=== PATIENT | female | born 1995 | race Caucasian/White ===

== ENCOUNTER 2020-08-19 19:30 | Emergency (ER) | payer OTHER ==
[2020-08-19 20:09] LABS: BILIRUBIN,URINE NEGATIVE (NEGATIVE); GLUCOSE, URINE (UA) NEGATIVE (NEGATIVE); KETONES,URINE (UA) NEGATIVE (NEGATIVE); LEUKOCYTE ESTERASE, URINE TRACE (NEGATIVE); NITRITE,URINE NEGATIVE (NEGATIVE); OCCULT BLOOD,URINE MODERATE (NEGATIVE); PH,URINE 5.5 PH (5.0-7.5); PROTEIN,URINE NEGATIVE (NEGATIVE); UROBILINOGEN,URINE 0.2 (NORMAL) E.U./dL (NORMAL)
[2020-08-19 20:14] LABS: CLARITY,URINE HAZY (CLEAR)
[2020-08-19 20:15] LABS: HCG UR QUAL NEGATIVE
[2020-08-19 20:35] LABS: BACTERIA,URINE Few /HPF (None Seen); SQUAMOUS EPITHELIAL CELL,UR FEW Squamous (<= Few)
--- NOTE | 2020-08-19 21:08 | ED Physician Documentation ---
PD HPI ABD PAIN - Stated complaint Stated Complaint: ABD PX - Chief complaint Chief Complaint: Abd Pain - History obtained from History obtained from: Patient - Additional information Additional information: Patient comes emergency department chief complaint of generalized and periumbilical abdominal pain that started today around midday. Patient denies nausea or vomiting. She has had a couple episodes of loose stools. She has had some dysuria she states which feels like previous UTIs. No fever or chills. No back pain. Patient does have a history of scoliosis with surgical repair with brenton placement, so has some chronic back issues. No new back pain, however. No chest symptoms. No other complaints at this time. States she does not think she could be . She is otherwise healthy. Review of Systems Ten Systems: 10 systems reviewed and negative Constitutional: reports: Reviewed and negative Eyes: reports: Reviewed and negative Ears: reports: Reviewed and negative Nose: reports: Reviewed and negative Throat: reports: Reviewed and negative Cardiac: reports: Reviewed and negative Respiratory: reports: Reviewed and negative GI: reports: Abdominal Pain : reports: Dysuria Skin: reports: Reviewed and negative Musculoskeletal: reports: Reviewed and negative Neurologic: reports: Reviewed and negative Psychiatric: reports: Reviewed and negative Endocrine: reports: Reviewed and negative Immunocompromised: reports: Reviewed and negative PD PAST MEDICAL HISTORY - Past Medical History Past Medical History: No - Past Surgical History Past Surgical History: Yes - Present Medications Home Medications: Ambulatory Orders Medication Instructions Recorded Confirmed Nitrofurantoin Monohyd/M-Cryst 100 mg PO BID #14 cap 08/19/20 [Macrobid 100 mg Capsule] - Allergies Allergies/Adverse Reactions: Allergies Allergy/AdvReac Type Severity Reaction Status Date / Time No Known Drug Allergies Allergy Verified 08/19/20 19:48 - Social History Does the pt smoke?: No Smoking Status: Never smoker Does the pt drink ETOH?: No Does the pt have substance abuse?: No - Immunizations Immunizations are current?: No PD ED PE NORMAL - Vitals Vital signs reviewed: Yes - General General: Alert and oriented X 3, No acute distress - HEENT HEENT: Atraumatic, PERRL, EOMI, Moist mucous membranes - Neck Neck: Supple, no meningeal sign - Cardiac Cardiac: RRR, No murmur - Respiratory Respiratory: No respiratory distress, Clear bilaterally - Abdomen Abdomen: Soft, Non distended, Other (Diffuse mild tenderness, worse over the suprapubic area.) - Derm Derm: Warm and dry - Extremities Extremities: No deformity - Neuro Neuro: Alert and oriented X 3 - Psych Psych: Normal mood, Normal affect Results - Vitals Vitals: Vital Signs - 24 hr 08/19/20 08/19/20 08/19/20 19:45 20:02 21:35 Temperature 37.3 C 37.2 C Heart Rate 88 69 62 Respiratory 16 16 16 Rate Blood Pressure 133/85 H 123/77 103/62 O2 Saturation 99 100 100 08/19/20 22:17 Temperature 37.1 C Heart Rate 56 L Respiratory 12 Rate Blood Pressure 110/71 O2 Saturation 99 Oxygen O2 Source Room air - Labs Labs: Laboratory Tests 08/19/20 08/19/20 08/19/20 19:50 19:50 20:59 WBC 6.8 RBC 4.47 Hgb 13.2 Hct 40.4 MCV 90.4 MCH 29.5 MCHC 32.7 RDW 12.9 Plt Count 348 MPV 9.0 Neut # (Auto) 3.4 Lymph # (Auto) 2.5 [place] # (Auto) 0.5 Eos # (Auto) 0.3 Baso # (Auto) 0.0 Absolute Nucleated RBC 0.00 Nucleated RBC % 0.0 Sodium Potassium Chloride Carbon Dioxide Anion Gap BUN Creatinine Estimated GFR (MDRD) Glucose Calcium Total Bilirubin AST ALT Alkaline Phosphatase Total Protein Albumin Globulin Albumin/Globulin Ratio Lipase Urine Color LT. YELLOW Urine Clarity HAZY Urine pH 5.5 Ur Specific [place] <=1.005 Urine Protein NEGATIVE Urine Glucose (UA) NEGATIVE Urine Ketones NEGATIVE Urine Occult Blood MODERATE H Urine Nitrite NEGATIVE Urine Bilirubin NEGATIVE Urine Urobilinogen 0.2 (NORMAL) Ur Leukocyte Esterase TRACE H Urine RBC 6-10 H Urine WBC 4-5 Ur Squamous Epith Cells FEW Squamous Urine Bacteria Few Ur Microscopic Review INDICATED Urine Culture Comments INDICATED Urine HCG, Qual NEGATIVE 08/19/20 20:59 WBC RBC Hgb Hct MCV MCH MCHC RDW Plt Count MPV Neut # (Auto) Lymph # (Auto) [place] # (Auto) Eos # (Auto) Baso # (Auto) Absolute Nucleated RBC Nucleated RBC % Sodium 139 Potassium 4.3 Chloride 108 Carbon Dioxide 22 Anion Gap 9.0 BUN 10 Creatinine 0.5 Estimated GFR (MDRD) 149 Glucose 94 Calcium 9.8 Total Bilirubin 0.4 AST 17 ALT 14 Alkaline Phosphatase 53 Total Protein 7.9 Albumin 4.5 Globulin 3.4 Albumin/Globulin Ratio 1.3 Lipase 35 Urine Color Urine Clarity Urine pH Ur Specific [place] Urine Protein Urine Glucose (UA) Urine Ketones Urine Occult Blood Urine Nitrite Urine Bilirubin Urine Urobilinogen Ur Leukocyte Esterase Urine RBC Urine WBC Ur Squamous Epith Cells Urine Bacteria Ur Microscopic Review Urine Culture Comments Urine HCG, Qual PD MEDICAL DECISION MAKING - ED course Complexity details: reviewed results, re-evaluated patient, considered differential, d/w patient ED course: Patient was not nauseated and had fairly mild, generalized abdominal pain worse over the suprapubic area. No evidence of an acute abdomen. Patient had difficult peripheral access, and so blood draw was performed without IV initially. Patient was also worked up with urinalysis. Laboratory studies were unremarkable. The urinalysis was mildly positive, and given the dysuria that the patient has had, as well as her history of UTIs and this feeling similar, I did opt to begin treatment for UTI. The patient did not have any abdominal findings which indicated the need for CT scan or ultrasound at this time. We have discussed that if the patient is not feeling better in the next week, she should follow-up with her primary care physician. We have discussed the usual indications for return Departure - Departure Disposition: 01 Home, Self Care Clinical Impression: Urinary tract infection Qualifiers: Urinary tract infection type: acute cystitis Hematuria presence: with hematuria Qualified Code(s): N30.01 - Acute cystitis with hematuria Condition: Stable Instructions: ED UTI Cystitis Female Prescriptions: Nitrofurantoin Monohyd/M-Cryst [Macrobid 100 mg Capsule] 100 mg PO BID #14 cap Comments: Your labs look good. There is no evidence of a serious cause of your symptoms. Your urine is mildly positive for infection, which may indicate an early urinary tract infection, particularly since your symptoms are similar to when you had urinary tract infections in the past. As such, you have been started on antibiotics today. It is also possible that you have one of the many viruses that go around causing similar symptoms. Please take the antibiotic course, as directed. If you are not feeling better when antibiotics are done, please make an appointment to follow-up with your primary care physician for reevaluation. Discharge Date/Time: 08/19/20 22:27
[2020-08-19 21:16] LABS: BASOPHILS % (AUTO) 0.6 %; EOSINOPHILS # (AUTO) 0.3 10^3/uL (0.0-0.7); EOSINOPHILS % (AUTO) 4.9 %; HCT - HEMATOCRIT 40.4 % (37.0-47.0); HGB - HEMOGLOBIN 13.2 g/dL (12.0-16.0); LYMPHOCYTES # (AUTO) 2.5 10^3/uL (1.5-3.5); LYMPHOCYTES % (AUTO) 36.8 %; MEAN CORPUSCULAR HEMOGLOBIN 29.5 pg (27.0-31.0); MEAN CORPUSCULAR HGB CONC 32.7 g/dL (32.0-36.0); MEAN CORPUSCULAR VOLUME 90.4 fL (81.0-99.0); MONOCYTES # (AUTO) 0.5 10^3/uL (0.0-1.0); NEUTROPHILS # (AUTO) 3.4 10^3/uL (1.5-6.6); NEUTROPHILS % (AUTO) 49.3 %; PLT - PLATELET COUNT 348 10^3/uL (130-450); RED BLOOD COUNT 4.47 10^6/uL (4.20-5.40); RED CELL DISTRIBUTION WIDTH 12.9 % (12.0-15.0); WHITE BLOOD COUNT 6.8 x10^3/uL (4.8-10.8)
[2020-08-19 21:30] LABS: ALBUMIN 4.5 g/dL (3.2-5.5); ALBUMIN/GLOBULIN RATIO 1.3 (1.0-2.2); BILIRUBIN,TOTAL 0.4 mg/dL (0.2-1.0); CALCIUM 9.8 mg/dL (8.5-10.3); CREATININE 0.5 mg/dL (0.4-1.0); POTASSIUM 4.3 mmol/L (3.5-5.0); TOTAL PROTEIN 7.9 g/dL (6.7-8.2)
[2020-08-19] MEDS ORDERED: NITROFURANTOIN MACRO 100 MG CAPSULE PO STA (21:42)
[2020-08-19 22:18] VITALS: BP 110/71
== END 2020-08-19 22:27 | disposition home or self-care (01) ==
LOC: ED 19:30
DX: N30.01 Acute cystitis with hematuria (principal)
CPT/HCPCS: 36415; 80053; 81001; 81025; 83690; 85025; 87086; 99283; 99284; A9270; 81003

== ENCOUNTER 2020-11-29 18:31 | Emergency (ER) | payer OTHER ==
[2020-11-29 18:36] VITALS: BP 128/83
[2020-11-29 18:53] LABS: BILIRUBIN,URINE NEGATIVE (NEGATIVE); GLUCOSE, URINE (UA) NEGATIVE (NEGATIVE); KETONES,URINE (UA) NEGATIVE (NEGATIVE); LEUKOCYTE ESTERASE, URINE SMALL (NEGATIVE); NITRITE,URINE NEGATIVE (NEGATIVE); OCCULT BLOOD,URINE TRACE-LYSE (NEGATIVE); PH,URINE 7.5 PH (5.0-7.5); PROTEIN,URINE NEGATIVE (NEGATIVE); UROBILINOGEN,URINE 0.2 (NORMAL) E.U./dL (NORMAL)
[2020-11-29 18:55] LABS: CLARITY,URINE CLEAR (CLEAR); HCG UR QUAL NEGATIVE
[2020-11-29] MEDS ORDERED: NITROFURANTOIN MACRO 100 MG CAPSULE PO STA (18:59)
[2020-11-29] MEDS ORDERED: PHENAZOPYRIDINE 100 MG TABLET PO STA (18:59)
--- NOTE | 2020-11-29 19:00 | ED Physician Documentation ---
PD HPI FEMALE - Stated complaint Stated Complaint: FEMALE - Chief complaint Chief Complaint: UTI - History obtained from History obtained from: Patient, Family - Additional information Additional information: Since yesterday she has had suprapubic pressure and burning dysuria. No flank pain or fevers. She gets relatively frequent UTIs, this will be her fourth in about the last 18 months. Review of Systems Constitutional: denies: Fever, Chills Cardiac: reports: Reviewed and negative Respiratory: reports: Reviewed and negative PD PAST MEDICAL HISTORY - Past Medical History Past Medical History: No - Past Surgical History Past Surgical History: Yes - Present Medications Home Medications: Ambulatory Orders Medication Instructions Recorded Confirmed Nitrofurantoin [Macrobid] 1 cap PO BID #10 cap 11/29/20 Phenazopyridine HCl [Pyridium] 200 mg PO TID PRN #6 tablet 11/29/20 - Allergies Allergies/Adverse Reactions: Allergies Allergy/AdvReac Type Severity Reaction Status Date / Time No Known Drug Allergies Allergy Verified 11/29/20 18:34 - Social History Does the pt smoke?: No Smoking Status: Never smoker Does the pt drink ETOH?: No Does the pt have substance abuse?: No - Immunizations Immunizations are current?: No PD ED PE NORMAL - Vitals Vital signs reviewed: Yes - General General: Alert and oriented X 3, No acute distress - Abdomen Abdomen: Non tender - Back Back: No CVA TTP, No spinal TTP - Derm Derm: Normal color, Warm and dry - Neuro Neuro: Alert and oriented X 3, Normal speech Results - Vitals Vitals: Vital Signs - 24 hr 11/29/20 18:34 Temperature 36.5 C Heart Rate 70 Respiratory 16 Rate Blood Pressure 128/83 H O2 Saturation 100 Oxygen O2 Source Room air - Labs Labs: Laboratory Tests 11/29/20 18:44 Urine Color YELLOW Urine Clarity CLEAR Urine pH 7.5 Ur Specific [place] 1.010 Urine Protein NEGATIVE Urine Glucose (UA) NEGATIVE Urine Ketones NEGATIVE Urine Occult Blood TRACE-LYSE Urine Nitrite NEGATIVE Urine Bilirubin NEGATIVE Urine Urobilinogen 0.2 (NORMAL) Ur Leukocyte Esterase SMALL H Ur Microscopic Review INDICATED Urine Culture Comments Not Reportable Urine HCG, Qual NEGATIVE Departure - Departure Disposition: 01 Home, Self Care Clinical Impression: Cystitis Condition: Good Record reviewed to determine appropriate education?: Yes Instructions: ED UTI Cystitis Female Follow-Up: Verenice Caldera MD [Physician No Access] - Prescriptions: Nitrofurantoin [Macrobid] 1 cap PO BID #10 cap Phenazopyridine HCl [Pyridium] 200 mg PO TID PRN #6 tablet PRN Reason: dysuria Comments: We will culture your urine, the results should be done in 48-72 hours. If an antibiotic change is necessary we will call you. Return if worse in the meantime, especially if you develop increasing flank pain, fevers, or cannot keep down the medication.
[2020-11-29 19:06] LABS: BACTERIA,URINE Few /HPF (None Seen); RBC,URINE 0-5 /HPF (0-5); SQUAMOUS EPITHELIAL CELL,UR FEW Squamous (<= Few)
== END 2020-11-29 19:20 | disposition home or self-care (01) ==
LOC: ED 18:31
DX: N30.90 Cystitis, unspecified without hematuria (principal)
CPT/HCPCS: 81001; 81025; 87086; 99283; A9270; 81003

== ENCOUNTER 2021-02-08 21:34 | Emergency (ER) | payer OTHER ==
--- NOTE | 2021-02-08 22:04 | ED Physician Documentation ---
History of Present Illness - Stated complaint Stated Complaint: CP,DIFFICULTY BREATHING - Chief complaint Chief Complaint: Resp - History obtained from History obtained from: Patient - Additonal information Additional information: 25yF with pmh asthma p/w cp and shortness of breath in the midchest, squeezing quality a/w nonprod cough X 2 days. patient took albuterol inhaler X 2 about 40 min [employer] with some relief. also endorses headache with cough. Review of Systems Ten Systems: 10 systems reviewed and negative Constitutional: denies: Fever Cardiac: reports: Chest pain / pressure Respiratory: reports: Dyspnea, Cough Neurologic: reports: Headache PD PAST MEDICAL HISTORY - Past Medical History Past Medical History: Yes Respiratory: Asthma Musculoskeletal: Scoliosis - Past Surgical History Past Surgical History: Yes Ortho: Spine surgery - Present Medications Home Medications: Ambulatory Orders Medication Instructions Recorded Confirmed Albuterol Sulfate [Proair Hfa 2 puffs IH Q4HR PRN 02/08/21 02/08/21 Inhaler] - Allergies Allergies/Adverse Reactions: Allergies Allergy/AdvReac Type Severity Reaction Status Date / Time No Known Drug Allergies Allergy Verified 02/08/21 21:45 - Social History Does the pt smoke?: No Smoking Status: Never smoker Does the pt drink ETOH?: No Does the pt have substance abuse?: No - Immunizations Immunizations are current?: No - POLST Patient has POLST: No PD ED PE NORMAL - Vitals Vital signs reviewed: Yes - General General: Alert and oriented X 3, No acute distress, Well developed/nourished - HEENT HEENT: Atraumatic, PERRL, EOMI - Neck Neck: Supple, no meningeal sign - Cardiac Cardiac: RRR - Respiratory Respiratory: No respiratory distress, Clear bilaterally - Abdomen Abdomen: Non tender, Non distended - Derm Derm: Normal color, Warm and dry - Extremities Extremities: No deformity - Neuro Neuro: Alert and oriented X 3 - Psych Psych: Normal mood, Normal affect Results - Vitals Vitals: Vital Signs - 24 hr 02/08/21 02/08/21 02/08/21 21:35 22:05 22:32 Temperature 36.7 C 36.7 C Heart Rate 83 72 78 Respiratory 18 16 14 Rate Blood Pressure 124/75 122/71 122/71 O2 Saturation 99 98 98 Oxygen O2 Source Room air - EKG (time done) 2151 Rate: Rate (enter#) (81) Rhythm: NSR [place]: Normal Intervals: Normal [place] QRS: Normal Ischemia: Normal ST segments PD MEDICAL DECISION MAKING - ED course ED course: patient presented with cough and shortness of breath, improved upon arrival to ed. patient is unvaccinated against covid-19 and concerned, requesting covid test. return precautions given. patient will self-isolate until results come back. Departure - Departure Disposition: Home, Self Care Clinical Impression: Viral upper respiratory illness Condition: Good Instructions: ED Viral Syndrome Comments: You were seen in the emergency department for a viral upper respiratory infection. Your vital signs and exam were normal. Your covid test result will come back in 2-3 days. You should isolate at home until then. Please return to the emergency department if you have any new or worsening symptoms or other concerns. The covid-19 has been proven to be safe and effective. Over 98% of doctors have gotten the covid-19 vaccine as well as all of the living [place] presidents. The Pfizer vaccine is fully approved by the FDA and the CDC highly recommends getting vaccinated as soon as possible. There is a lot of misinformation on the internet and it's important to look to established medical authorities like the CDC and FDA for true information. I highly encourage you to talk to your doctor about vaccination. Forms: Activity restrictions Discharge Date/Time: 02/08/21 22:33
[2021-02-08 22:06] VITALS: BP 122/71
== END 2021-02-08 22:33 | disposition home or self-care (01) ==
LOC: ED 21:34
DX: U07.1 COVID-19 (principal); J06.9 Acute upper respiratory infection, unspecified; J45.909 Unspecified asthma, uncomplicated
CPT/HCPCS: 93005; 99284

== ENCOUNTER 2021-02-11 19:02 | Emergency (ER) | payer OTHER ==
[2021-02-11] MEDS ORDERED: guaiFENesin/CODEINE 5 ML UDC PO STA (19:25)
[2021-02-11] MEDS ORDERED: IBUPROFEN 400 MG TABLET PO STA (19:25)
--- NOTE | 2021-02-11 19:27 | ED Physician Documentation ---
PD HPI DYSPNEA - Stated complaint Stated Complaint: C+,CHEST PX,SOA - History obtained from History obtained from: Patient - Additional information Additional information: 25-year-old woman unvaccinated against Covid was seen here 3 days ago and diagnosed with Covid. She is been symptomatic for 5 days now. Major symptoms are central sharp chest pain, trouble breathing and cough. No pedal edema or calf pain. No possibility of . Review of Systems Ten Systems: 10 systems reviewed and negative Constitutional: reports: Fever, Chills, Myalgias, Fatigue Nose: denies: Rhinorrhea / runny nose Respiratory: reports: Dyspnea, Cough GI: denies: Abdominal Pain PD PAST MEDICAL HISTORY - Past Medical History Respiratory: Asthma Musculoskeletal: Scoliosis - Past Surgical History Past Surgical History: Yes Ortho: Spine surgery - Present Medications Home Medications: Ambulatory Orders Medication Instructions Recorded Confirmed Albuterol Sulf [Ventolin Hfa 1 - 2 puffs INH Q4HR PRN #1 inhaler 02/11/21 Inhaler] Ibuprofen [Motrin] 400 mg PO Q6H PRN #20 tablet 02/11/21 guaiFENesin/CODEINE [Robitussin AC] 5 - 10 ml PO Q6H PRN #120 ml 02/11/21 - Allergies Allergies/Adverse Reactions: Allergies Allergy/AdvReac Type Severity Reaction Status Date / Time No Known Drug Allergies Allergy Verified 02/11/21 19:26 - Social History Does the pt smoke?: No Smoking Status: Never smoker Does the pt drink ETOH?: No Does the pt have substance abuse?: No - Immunizations Immunizations are current?: No - POLST Patient has POLST: No PD ED PE NORMAL - Vitals Vital signs reviewed: Yes - General General: Alert and oriented X 3 (She appears well, no evidence of respiratory distress, comfortable) - Cardiac Cardiac: RRR, No murmur - Respiratory Respiratory: No respiratory distress, Clear bilaterally - Abdomen Abdomen: Soft, Non tender - Back Back: No CVA TTP, No spinal TTP - Derm Derm: Normal color, Warm and dry - Extremities Extremities: No edema, No calf tenderness / cord - Neuro Neuro: Alert and oriented X 3, Normal speech Results - Vitals Vitals: Vital Signs - 24 hr 02/11/21 19:20 Temperature 36.3 C L Heart Rate 77 Respiratory 16 Rate Blood Pressure 129/63 O2 Saturation 100 Oxygen O2 Source Room air PD MEDICAL DECISION MAKING - ED course ED course: 25-year-old woman with known Covid. No evidence of pneumonia at this juncture. Nothing in the history or physical to 6 suggest ACS or thromboembolic disease. We will treat symptomatically and discussed signs and symptoms that would necessitate return for hospitalization. She does not fit criteria for antibody therapy. Departure - Departure Disposition: 01 Home, Self Care Clinical Impression: COVID-19 Condition: Good Record reviewed to determine appropriate education?: Yes Instructions: ED Viral Syndrome Prescriptions: Albuterol Sulf [Ventolin Hfa Inhaler] 1 - 2 puffs INH Q4HR PRN #1 inhaler PRN Reason: Shortness Of Air/Wheezing Ibuprofen [Motrin] 400 mg PO Q6H PRN #20 tablet PRN Reason: Pain guaiFENesin/CODEINE [Robitussin AC] 5 - 10 ml PO Q6H PRN #120 ml PRN Reason: Cough Comments: As discussed, you are positive for Covid which you already knew. You need to quarantine for at least 9 more days. [facility] [place] Note that someone else will have to go pick them up for it for you since you are need to be under strict quarantine. However goes to the pharmacy should buy a pulse oximeter. You can use this and if it goes below 92% please return for reevaluation. Your oxygen levels today are 100%. You are also welcome to return for any other new or worrisome symptoms. Discharge Date/Time: 02/11/21 19:34
[2021-02-11 19:29] VITALS: BP 129/63
== END 2021-02-11 19:34 | disposition home or self-care (01) ==
LOC: ED 19:02
DX: U07.1 COVID-19 (principal)
CPT/HCPCS: 99283; 99284; A9270

== ENCOUNTER 2021-03-02 18:57 | Emergency (ER) | payer OTHER ==
[2021-03-02 19:47] LABS: BILIRUBIN,URINE NEGATIVE (NEGATIVE); GLUCOSE, URINE (UA) NEGATIVE (NEGATIVE); KETONES,URINE (UA) NEGATIVE (NEGATIVE); LEUKOCYTE ESTERASE, URINE SMALL (NEGATIVE); NITRITE,URINE NEGATIVE (NEGATIVE); OCCULT BLOOD,URINE MODERATE (NEGATIVE); PROTEIN,URINE NEGATIVE (NEGATIVE); UROBILINOGEN,URINE 0.2 (NORMAL) E.U./dL (NORMAL)
[2021-03-02 19:50] LABS: CLARITY,URINE CLEAR (CLEAR); HCG UR QUAL NEGATIVE
[2021-03-02 20:02] LABS: BACTERIA,URINE Many /HPF (None Seen); RBC,URINE 0-5 /HPF (0-5); SQUAMOUS EPITHELIAL CELL,UR MANY Squamous (<= Few)
--- NOTE | 2021-03-02 20:16 | ED Physician Documentation ---
History of Present Illness - Stated complaint Stated Complaint: FEMALE /BACK PX - Chief complaint Chief Complaint: UTI - Additonal information Additional information: 25-year-old female presents emergency department for evaluation of 2 days of dysuria and low back pain. She has a history of recurrent urinary tract infections. This is the sixth 1 over the last 2 years. No fevers or vomiting. Denies a possibility of . Denies vaginal bleeding Review of Systems Constitutional: reports: Reviewed and negative Eyes: reports: Reviewed and negative Nose: reports: Reviewed and negative Throat: reports: Reviewed and negative Cardiac: reports: Reviewed and negative GI: reports: Abdominal Pain. denies: Nausea, Vomiting : reports: Dysuria, Hematuria. denies: Frequency, Hesitancy Skin: reports: Reviewed and negative Musculoskeletal: reports: Reviewed and negative PD PAST MEDICAL HISTORY - Past Medical History Respiratory: Asthma Musculoskeletal: Scoliosis - Past Surgical History Past Surgical History: Yes Ortho: Spine surgery - Present Medications Home Medications: Ambulatory Orders Medication Instructions Recorded Confirmed Cefpodoxime Proxetil [Vantin] 100 mg PO Q12H #14 tablet 03/02/21 - Allergies Allergies/Adverse Reactions: Allergies Allergy/AdvReac Type Severity Reaction Status Date / Time No Known Drug Allergies Allergy Verified 03/02/21 19:02 - Social History Does the pt smoke?: No Smoking Status: Never smoker Does the pt drink ETOH?: No Does the pt have substance abuse?: No - Immunizations Immunizations are current?: No - POLST Patient has POLST: No PD ED PE NORMAL - General General: Alert and oriented X 3, No acute distress - HEENT HEENT: PERRL - Neck Neck: Supple, no meningeal sign - Cardiac Cardiac: RRR, No murmur - Respiratory Respiratory: Clear bilaterally - Abdomen Abdomen: Normal bowel sounds, Soft. No: Non tender (Mild suprapubic tenderness without guarding or rebound. No flank or CVA tenderness elicited) - Derm Derm: Normal color, Warm and dry, No rash - Extremities Extremities: No deformity - Neuro Neuro: Alert and oriented X 3 Results - Vitals Vitals: Vital Signs - 24 hr 03/02/21 18:59 Temperature 36.5 C Heart Rate 66 Respiratory 16 Rate Blood Pressure 131/73 H O2 Saturation 100 Oxygen O2 Source Room air - Labs Labs: Laboratory Tests 03/02/21 19:18 Urine Color YELLOW Urine Clarity CLEAR Urine pH 7.0 Ur Specific [place] 1.020 Urine Protein NEGATIVE Urine Glucose (UA) NEGATIVE Urine Ketones NEGATIVE Urine Occult Blood MODERATE H Urine Nitrite NEGATIVE Urine Bilirubin NEGATIVE Urine Urobilinogen 0.2 (NORMAL) Ur Leukocyte Esterase SMALL H Urine RBC 0-5 Urine WBC 6-10 H Ur Squamous Epith Cells MANY Squamous H Urine Bacteria Many H Ur Microscopic Review INDICATED Urine Culture Comments NOT INDICATED Urine HCG, Qual NEGATIVE PD MEDICAL DECISION MAKING - ED course Complexity details: reviewed results ED course: 25-year-old female presents emergency department for urinary symptoms began 2 days ago. She does have a UA consistent with infection. No fevers flank pain or CVA tenderness doubt a sending infection or pyelonephritis. Patient will be started on Vantin. Advise close follow-up with her PCP for evaluation of her recurrent urinary tract infections would likely benefit from a urology referral. Departure - Departure Disposition: 01 Home, Self Care Clinical Impression: Cystitis Condition: Stable Record reviewed to determine appropriate education?: Yes Instructions: ED UTI Cystitis Female Prescriptions: Cefpodoxime Proxetil [Vantin] 100 mg PO Q12H #14 tablet Comments: You were seen in the emergency department today for low back pain and some discomfort when you urinate. Your urine is consistent with an infection. Please fill the prescription for the Cefpodoxime at the [facility] in [place] tomorrow. Begin taking twice daily for the next week. It is important you follow-up with your primary care doctor to discuss your recurrent urinary tract infections. You may benefit from referral to a urologist. If at any point you find that your symptoms are not improving, you develop pain higher in your back, have fevers or uncontrolled vomiting then please return immediately to the ER for a second evaluation.
[2021-03-02 20:33] VITALS: BP 113/73
== END 2021-03-02 20:34 | disposition home or self-care (01) ==
LOC: ED 18:57
DX: N30.91 Cystitis, unspecified with hematuria (principal)
CPT/HCPCS: 81001; 81003; 81025; 87086; 99283

== ENCOUNTER 2021-03-16 08:00 | Outpatient (CLI) | payer OTHER | END 2021-03-16 23:59 | disposition home or self-care (01) | LOC: LAB 08:00 | PROVIDERS: ATTEND Nurse Practitioner | DX: N39.0 Urinary tract infection, site not specified (principal) | CPT/HCPCS: 87086 ==

== ENCOUNTER 2021-03-17 11:03 | Outpatient (CLI) | payer OTHER ==
[2021-03-17 13:40] LABS: BASOPHILS % (AUTO) 0.5 %; EOSINOPHILS # (AUTO) 0.4 10^3/uL (0.0-0.7); EOSINOPHILS % (AUTO) 6.9 %; HCT - HEMATOCRIT 41.3 % (37.0-47.0); HGB - HEMOGLOBIN 13.2 g/dL (12.0-16.0); MEAN CORPUSCULAR HEMOGLOBIN 29.7 pg (27.0-31.0); MEAN PLATELET VOLUME 9.7 fL (7.9-10.8); MONOCYTES # (AUTO) 0.5 10^3/uL (0.0-1.0); NEUTROPHILS # (AUTO) 2.9 10^3/uL (1.5-6.6); NEUTROPHILS % (AUTO) 50.3 %; PLT - PLATELET COUNT 317 10^3/uL (130-450); RED BLOOD COUNT 4.44 10^6/uL (4.20-5.40); WHITE BLOOD COUNT 5.8 x10^3/uL (4.8-10.8)
[2021-03-17 14:21] LABS: ALBUMIN 4.6 g/dL (3.2-5.5); ALBUMIN/GLOBULIN RATIO 1.3 (1.0-2.2); BILIRUBIN,TOTAL 0.9 mg/dL (0.2-1.0); CALCIUM 9.5 mg/dL (8.5-10.3); CREATININE 0.6 mg/dL (0.4-1.0); POTASSIUM 3.8 mmol/L (3.5-5.0); TOTAL PROTEIN 8.1 g/dL (6.7-8.2)
[2021-03-17 19:27] LABS: CHLAMYDIA TRACHOMATIS DNA NEGATIVE (NEGATIVE); NEISSERIA GONORRHOEAE DNA NEGATIVE (NEGATIVE); TRICHOMONAS VAGINALIS DNA NEGATIVE (NEGATIVE)
== END 2021-03-17 11:04 | disposition home or self-care (01) ==
LOC: LAB.N 11:03
PROVIDERS: ATTEND Nurse Practitioner
DX: N39.0 Urinary tract infection, site not specified (principal); R30.0 Dysuria
CPT/HCPCS: 36415; 80053; 82150; 83690; 85025; 87086; 87491; 87591; 87661

== ENCOUNTER 2021-04-07 15:55 | Emergency (ER) | payer OTHER ==
--- NOTE | 2021-04-07 16:22 | ED Physician Documentation ---
PD HPI FEMALE - Stated complaint Stated Complaint: FEMALE - Chief complaint Chief Complaint: UTI - History obtained from History obtained from: Patient - History of Present Illness Timing - duration: Months (6) Timing - details: Gradual onset Pain level max: 6 Pain level max: 4 Associated symptoms: Pelvic pain, Dysuria, Urinary frequency. No: Fever, Chest/shoulder pain, Vaginal pain, Vaginal bleeding, Vaginal discharge, Genital sore/lesion, Hematuria Contributing factors: No: - Additional information Additional information: Patient is a 25-year-old female who presents to the emergency department complaining of dysuria and pelvic pain for the past 6 months. She states she has been seen and treated multiple times for UTI. Denies vaginal bleeding or discharge. Symptoms do not improve with treatment for the UTI. No fevers. No chills. No back pain. She has had blood work multiple times as well that has been reportedly normal. She states that she has taken Pyridium without relief of symptoms. Denies any STD exposure that she is aware of. No vaginal bleeding or discharge. Review of Systems Ten Systems: 10 systems reviewed and negative Constitutional: denies: Fever, Chills Nose: denies: Rhinorrhea / runny nose, Congestion Respiratory: denies: Cough GI: denies: Nausea, Vomiting, Diarrhea, Hematemesis, Bloody / black stool Skin: denies: Rash Musculoskeletal: denies: Neck pain, Back pain Neurologic: denies: Headache PD PAST MEDICAL HISTORY - Past Medical History Respiratory: Asthma Musculoskeletal: Scoliosis - Past Surgical History Past Surgical History: Yes Ortho: Spine surgery - Present Medications Home Medications: Ambulatory Orders Medication Instructions Recorded Confirmed Cefpodoxime Proxetil [Vantin] 100 mg PO Q12H #14 tablet 03/02/21 - Allergies Allergies/Adverse Reactions: Allergies Allergy/AdvReac Type Severity Reaction Status Date / Time No Known Drug Allergies Allergy Verified 04/07/21 16:04 - Social History Does the pt smoke?: No Smoking Status: Never smoker Does the pt drink ETOH?: No Does the pt have substance abuse?: No - Immunizations Immunizations are current?: No - POLST Patient has POLST: No PD ED PE NORMAL - Vitals Vital signs reviewed: Yes - General General: Alert and oriented X 3, No acute distress, Well developed/nourished - HEENT HEENT: Moist mucous membranes, Pharynx benign - Neck Neck: Supple, no meningeal sign - Cardiac Cardiac: RRR, Strong equal pulses - Respiratory Respiratory: No respiratory distress, Clear bilaterally - Abdomen Abdomen: Soft, Non distended, Other (Tender to palpation across the lower abdomen. No peritoneal signs) - Female Female : Pt declined (Patient declines a pelvic exam at this time, she would like to self swab and see those results) - Back Back: No CVA TTP, No spinal TTP - Derm Derm: Warm and dry - Extremities Extremities: No edema - Neuro Neuro: Alert and oriented X 3 - Psych Psych: Normal mood, Normal affect Results - Vitals Vitals: Vital Signs - 24 hr 04/07/21 15:58 Temperature 36.5 C Heart Rate 82 Respiratory 15 Rate Blood Pressure 114/62 O2 Saturation 99 Oxygen O2 Source Room air PD MEDICAL DECISION MAKING - ED course Complexity details: reviewed old records, re-evaluated patient, considered differential, d/w patient ED course: 25-year-old female presents to the emergency department with ongoing pelvic pain for the past 6 months. I reviewed her chart and she has had multiple rounds of normal blood work. Her urinalysis has appeared positive but all cultures have been negative for infection. We will perform self swab for vaginal infections. Patient declines a pelvic exam at this time. We will perform a pelvic ultrasound as well. Patient will be signed out to Dr. Alonso, [facility] emergency department physician for final disposition.
[2021-04-07 16:57] LABS: AMORPHOUS SEDIMENT,UR Marked /LPF; BACTERIA,URINE Rare /HPF (None Seen); CLARITY,URINE INTERFERENCES (CLEAR); HCG UR QUAL NEGATIVE; RBC,URINE 0-5 /HPF (0-5); SQUAMOUS EPITHELIAL CELL,UR FEW Squamous (<= Few); WBC,URINE 0-3 /HPF (0-5)
--- NOTE | 2021-04-07 18:14 | ED Physician Documentation ---
ED Addendum - Addendum Addendum: 04/07/21 18:13 Patient signed out to me at shift change. Briefly this is a 25-year-old woman who has had a year and a half constant pelvic pain and further history shows that she has had dyspareunia and cystitis type symptoms previously diagnosed as cystitis but note made that her previous cultures were negative. Dr. Breen ordered a pelvic ultrasound tonight and the tower operator reported to me that this was a normal study. Based on her symptoms I believe she probably has in terstitial cystitis, and recommended that she follow-up with urogynecology. We will also trial some amitriptyline in the interim at a dose of 10 mg once daily at bedtime #30. Disposition: Discharged home Condition: Stable Diagnoses: 1. Pelvic pain 2. Dyspareunia
[2021-04-07 18:20] LABS: BACTERIAL VAGINOSIS DNA NEGATIVE (NEGATIVE); CANDIDA GLABRATA DNA NEGATIVE (NEGATIVE); CANDIDA GROUP DNA NEGATIVE (NEGATIVE); CANDIDA KRUSEI DNA NEGATIVE (NEGATIVE); TRICHOMONAS VAGINALIS DNA NEGATIVE (NEGATIVE)
[2021-04-07 18:25] VITALS: BP 118/80
--- NOTE | 2021-04-07 18:37 | Ultrasound Report ---
PROCEDURE: Pelvic w/Transvag+Doppler Comp INDICATIONS: pelvic pain B TECHNIQUE: Real-time scanning was performed of the pelvic organs, with image documentation. Additional endovagi nal scanning was necessary due to incomplete visualization of the adnexal and endometrial structures by transabdominal scanning. COMPARISON: None. FINDINGS: No pathologic free abdominal or pelvic fluid. Uterus: Uterus is normal in size at 8.6 x 4.2 x 5.9 cm. The endometrium measures 04 mm in combined thickness. Uterus is anteverted. Homogeneous uterine echotexture. Ovaries: Right ovary measures 4.2 x 2.5 x 1.8 cm with ovarian volume of 10 mL. Left ovary measures 3 .0 x 2.0 x 2.4 cm with ovarian volume of 7.2 mL. Vascular waveforms noted bilaterally. No suspicious ovarian or adnexal mass lesions. IMPRESSION: Pelvic ultrasound without acute sonographic abnormalities. No evidence for ovarian torsion. Reviewed by: Miguel Ángel Bledsoe MD on 04/07/2021 6:36 PM PST Approved by: Miguel Ángel Bledsoe MD on 04/07/2021 6:36 PM PST Station ID: [id number]
[2021-04-07 21:16] LABS: CHLAMYDIA TRACHOMATIS DNA NEGATIVE (NEGATIVE); NEISSERIA GONORRHOEAE DNA NEGATIVE (NEGATIVE); TRICHOMONAS VAGINALIS DNA NEGATIVE (NEGATIVE)
== END 2021-04-07 18:24 | disposition home or self-care (01) ==
LOC: ED 15:55
DX: R10.2 Pelvic and perineal pain (principal); N94.10 Unspecified dyspareunia
CPT/HCPCS: 81001; 81003; 81025; 87086; 87491; 87591; 87661; 87801; 93975; 99283; 99284

== ENCOUNTER 2021-08-19 21:40 | Emergency (ER) | payer OTHER ==
[2021-08-19] MEDS ORDERED: IBUPROFEN 800 MG TABLET PO STA (23:03)
[2021-08-19] MEDS ORDERED: TETANUS/DIPHTHERIA/PERTUSSIS 0.5 ML SYRINGE IM ONE (23:03)
[2021-08-19] MEDS ORDERED: AMOX/CLAV 875 MG/125 MG TABLET PO STA (23:03)
--- NOTE | 2021-08-19 23:10 | ED Physician Documentation ---
PD HPI SKIN - Stated complaint Stated Complaint: DOG BITE/BOTH HANDS - Chief complaint Chief Complaint: Laceration - History obtained from History obtained from: Patient - Additional information Additional information: The patient comes to the emergency department with chief complaint of dog bites. She states that her dog was running away and she went to try to catch it but it was emotionally excited and nipped her on the hand and fingers several times during the encounter. Patient states that she was not injured anywhere else. She is not sure when her last tetanus shot was. The patient states her dog is vaccinated for rabies and was acting normally prior to the incident. She states she was able to open and close her fingers, though now her fingers feel somewhat sore and stiff. No other complaints at this time. Review of Systems Ten Systems: 10 systems reviewed and negative Constitutional: reports: Reviewed and negative Eyes: reports: Reviewed and negative Ears: reports: Reviewed and negative Nose: reports: Reviewed and negative Throat: reports: Reviewed and negative Cardiac: reports: Reviewed and negative Respiratory: reports: Reviewed and negative GI: reports: Reviewed and negative : reports: Reviewed and negative Skin: reports: Bite / sting Musculoskeletal: reports: Reviewed and negative Neurologic: reports: Reviewed and negative Psychiatric: reports: Reviewed and negative Endocrine: reports: Reviewed and negative Immunocompromised: reports: Reviewed and negative PD PAST MEDICAL HISTORY - Past Medical History Respiratory: Asthma Musculoskeletal: Scoliosis - Past Surgical History Past Surgical History: Yes Ortho: Spine surgery - Present Medications Home Medications: Ambulatory Orders Medication Instructions Recorded Confirmed Amox/Clav 875/125 [Augmentin 1 tablet PO Q8H 7 Days #21 tablet 08/19/21 875/125 Tab] - Allergies Allergies/Adverse Reactions: Allergies Allergy/AdvReac Type Severity Reaction Status Date / Time No Known Drug Allergies Allergy Verified 08/19/21 22:05 - Social History Does the pt smoke?: No Smoking Status: Never smoker Does the pt drink ETOH?: No Does the pt have substance abuse?: No - Immunizations Immunizations are current?: No - POLST Patient has POLST: No PD ED PE NORMAL - Vitals Vital signs reviewed: Yes - General General: Alert and oriented X 3, No acute distress, Well developed/nourished - HEENT HEENT: Atraumatic, PERRL, EOMI, Moist mucous membranes - Neck Neck: Supple, no meningeal sign - Cardiac Cardiac: Strong equal pulses - Respiratory Respiratory: No respiratory distress - Derm Derm: Normal color, Warm and dry, No rash, Other (Multiple puncture wounds over especially her right fingers but a few over the left fingers as well. No erythema or edema. There is a laceration. Punctures appear fairly superficial, though some are associated with small skin tears.) - Extremities Extremities: No deformity, Other (Full strength to resistance of flexion and extension at all joints of the patient's fingers bilaterally.) - Neuro Neuro: Alert and oriented X 3, No motor deficit, No sensory deficit - Psych Psych: Normal mood, Normal affect Results - Vitals Vitals: Vital Signs - 24 hr 08/19/21 22:01 Temperature 36.6 C Heart Rate 88 O2 Saturation 100 Oxygen O2 Source Room air PD MEDICAL DECISION MAKING - ED course Complexity details: considered differential, d/w patient ED course: Given the multiple puncture wounds and the location over the fingers, I felt this patient should be started on antibiotics. She was given a dose of Augmentin in the emergency department as well as a dose of ibuprofen. She was also updated as far as tetanus. We have discussed the need for antibiotics at home and I have given the patient a work note. We have discussed the usual indications for return. Departure - Departure Disposition: Home, Self Care Clinical Impression: Dog bite Qualifiers: Encounter type: initial encounter Qualified Code(s): W54.0XXA - Bitten by dog, initial encounter Condition: Stable Instructions: ED Bite Dog Prescriptions: Amox/Clav 875/125 [Augmentin 875/125 Tab] 1 tablet PO Q8H 7 Days #21 tablet Comments: Your prescription has been electronically transmitted to [facility] pharmacy in [place]. Forms: Activity restrictions
[2021-08-19 23:18] VITALS: BP 125/68
== END 2021-08-19 23:34 | disposition home or self-care (01) ==
LOC: ED 21:40
DX: S61.259A Open bite of unspecified finger without damage to nail, initial encounter (principal); W54.0XXA Bitten by dog, initial encounter; Y93.K9 Activity, other involving animal care
CPT/HCPCS: 90471; 90715; 99282; 99283; A9270

== ENCOUNTER 2021-10-02 08:00 | Outpatient (CLI) | payer OTHER ==
--- NOTE | 2021-10-03 10:38 | XRAY Report ---
PROCEDURE: Wrist 4 View RT INDICATIONS: SPRAIN OF R WRIST TECHNIQUE: 4 views of the wrist were acquired. COMPARISON: None FINDINGS: Bones: No fractures or dislocations. No suspicious bony lesions. Scaphoid view: Scaphoid is grossly intact. Soft tissues: No suspicious soft tissue calcifications. IMPRESSION: No acute right wrist fracture or dislocation. No gross soft tissue abnormality. Reviewed by: Eldon Ramirez MD on 10/03/2021 9:05 AM PDT Approved by: Eldon Ramirez MD on 10/03/2021 9:05 AM PDT Station ID: [id number]
== END 2021-10-02 23:59 | disposition home or self-care (01) ==
LOC: DI.N 08:00
PROVIDERS: ATTEND Family Medicine
DX: S63.591A Other specified sprain of right wrist, initial encounter (principal)

== ENCOUNTER 2022-02-08 08:00 | Outpatient (CLI) | payer OTHER | END 2022-02-08 23:59 | disposition home or self-care (01) | LOC: LAB.N 08:00 | PROVIDERS: ATTEND Nurse Practitioner | DX: N91.2 Amenorrhea, unspecified (principal) | CPT/HCPCS: 87086 ==

== ENCOUNTER 2022-02-08 16:23 | Emergency (ER) | payer OTHER ==
--- OUTSIDE RECORDS SUMMARY | 2022-02-08 16:30 | EXTERNAL MEDICAL SUMMARY RPT | Continuity of Care Document ---
:1995 Author Organization [facility] Address [address] [phone] Phone Care Team Providers Name Role Phone Rene Manning Pa-C Unavailable Unavailable Ketan Pfs, Chijerrica Unavailable Unavailable Allergies No information. Encounters No information. Functional Status No information. Immunizations No information. Medications No information. Problems No information. Procedures No information. Results/Labs No information. Social History date description facility +0000 Unknown if ever smoked All [phone] Unknown if ever smoked All Vital Signs No information.
[2022-02-08 16:37] VITALS: BP 138/83
--- NOTE | 2022-02-08 16:52 | ED Physician Documentation ---
PD HPI FEMALE - Stated complaint Stated Complaint: FEMALE - Chief complaint Chief Complaint: Abd Pain - History obtained from History obtained from: Patient - Additional information Additional information: This is a 26-year-old otherwise healthy woman who presents from the walk-in clinic for the evaluation of amenorrhea. Her last period was on November 27, has not had a menses since. It is associated with some bilateral pelvic pain. No discharge. In the walk-in clinic she had a test done which was reportedly negative. She is not trying to get per se but is not using control. No other interval changes such as new medications, weight changes, changes in her exercise regime. Prior to this she was regular. Review of Systems Ten Systems: 10 systems reviewed and negative Constitutional: denies: Fever, Chills, Fatigue GI: denies: Nausea, Vomiting, Diarrhea PD PAST MEDICAL HISTORY - Past Medical History Respiratory: Asthma Musculoskeletal: Scoliosis - Past Surgical History Past Surgical History: Yes Ortho: Spine surgery - Present Medications Home Medications: Ambulatory Orders Medication Instructions Recorded Confirmed No Known Home Medications 02/08/22 02/08/22 - Allergies Allergies/Adverse Reactions: Allergies Allergy/AdvReac Type Severity Reaction Status Date / Time No Known Drug Allergies Allergy Verified 02/08/22 16:37 - Social History Does the pt smoke?: No Smoking Status: Never smoker Does the pt drink ETOH?: No Does the pt have substance abuse?: No - Immunizations Immunizations are current?: No - POLST Patient has POLST: No PD ED PE NORMAL - Vitals Vital signs reviewed: Yes - General General: Alert and oriented X 3, No acute distress - Abdomen Abdomen: Normal bowel sounds, Soft, Non tender - Derm Derm: Normal color, Warm and dry - Extremities Extremities: No edema, No calf tenderness / cord - Neuro Neuro: Alert and oriented X 3, Normal speech Results - Vitals Vitals: Vital Signs - 24 hr 02/08/22 16:33 Temperature 36.3 C L Heart Rate 81 Respiratory 16 Rate Blood Pressure 138/83 H O2 Saturation 100 Oxygen O2 Source Room air - Labs Labs: Laboratory Tests 02/08/22 02/08/22 02/08/22 16:52 16:52 16:52 WBC 7.9 RBC 4.37 Hgb 12.6 Hct 39.2 MCV 89.7 MCH 28.8 MCHC 32.1 RDW 12.8 Plt Count 350 MPV 8.8 Neut # (Auto) 4.2 Lymph # (Auto) 2.7 [place] # (Auto) 0.6 Eos # (Auto) 0.4 Baso # (Auto) 0.0 Absolute Nucleated RBC 0.00 Nucleated RBC % 0.0 Sodium 135 Potassium 3.4 L Chloride 103 Carbon Dioxide 25 Anion Gap 7.0 BUN 10 Creatinine 0.6 Estimated GFR (MDRD) 120 Glucose 76 Calcium 8.9 Total Bilirubin 0.6 AST 17 ALT 15 Alkaline Phosphatase 51 Total Protein 7.8 Albumin 4.2 Globulin 3.6 Albumin/Globulin Ratio 1.2 TSH 4.78 FSH 4.31 Prolactin 26.06 Urine Color Urine Clarity Urine pH Ur Specific [place] Urine Protein Urine Glucose (UA) Urine Ketones Urine Occult Blood Urine Nitrite Urine Bilirubin Urine Urobilinogen Ur Leukocyte Esterase Urine RBC Urine WBC Ur Squamous Epith Cells Urine Bacteria Ur Microscopic Review Urine Culture Comments Urine HCG, Qual 02/08/22 17:32 WBC RBC Hgb Hct MCV MCH MCHC RDW Plt Count MPV Neut # (Auto) Lymph # (Auto) [place] # (Auto) Eos # (Auto) Baso # (Auto) Absolute Nucleated RBC Nucleated RBC % Sodium Potassium Chloride Carbon Dioxide Anion Gap BUN Creatinine Estimated GFR (MDRD) Glucose Calcium Total Bilirubin AST ALT Alkaline Phosphatase Total Protein Albumin Globulin Albumin/Globulin Ratio TSH FSH Prolactin Urine Color LT. YELLOW Urine Clarity HAZY Urine pH 6.0 Ur Specific [place] 1.010 Urine Protein NEGATIVE Urine Glucose (UA) NEGATIVE Urine Ketones NEGATIVE Urine Occult Blood SMALL H Urine Nitrite NEGATIVE Urine Bilirubin NEGATIVE Urine Urobilinogen 0.2 (NORMAL) Ur Leukocyte Esterase MODERATE H Urine RBC 11-25 H Urine WBC 6-10 H Ur Squamous Epith Cells MOD Squamous H Urine Bacteria Few Ur Microscopic Review INDICATED Urine Culture Comments NOT INDICATED Urine HCG, Qual NEGATIVE PD MEDICAL DECISION MAKING - ED course ED course: 26-year-old woman presents for the evaluation of amenorrhea from the walk-in clinic. No emergency medical condition is identified based on history and physical but her work-up was expedited by ordering labs and an ultrasound. Departure - Departure Disposition: 01 Home, Self Care Clinical Impression: Amenorrhea Condition: Good Record reviewed to determine appropriate education?: Yes Instructions: ED Amenorrhea Follow-Up: [facility] [Provider Group] Comments: You were seen today for amenorrhea. We also found you to be not . Your TSH, FSH, and prolactin levels were normal. Pending are estradiol and testosterone levels, these get sent to an outside labs, so are not available for interpretation for a few days. You do have a right ovarian cyst on ultrasound with a slightly thickened endometrium. Follow-up with the women's clinic for evaluation for this and next steps. Discharge Date/Time: 02/08/22 19:20
[2022-02-08 16:56] LABS: BASOPHILS % (AUTO) 0.5 %; EOSINOPHILS # (AUTO) 0.4 10^3/uL (0.0-0.7); EOSINOPHILS % (AUTO) 4.4 %; HCT - HEMATOCRIT 39.2 % (37.0-47.0); HGB - HEMOGLOBIN 12.6 g/dL (12.0-16.0); LYMPHOCYTES # (AUTO) 2.7 10^3/uL (1.5-3.5); LYMPHOCYTES % (AUTO) 34.1 %; MEAN CORPUSCULAR HEMOGLOBIN 28.8 pg (27.0-31.0); MEAN CORPUSCULAR HGB CONC 32.1 g/dL (32.0-36.0); MEAN CORPUSCULAR VOLUME 89.7 fL (81.0-99.0); MEAN PLATELET VOLUME 8.8 fL (7.9-10.8); MONOCYTES # (AUTO) 0.6 10^3/uL (0.0-1.0); MONOCYTES % (AUTO) 7.8 %; NEUTROPHILS # (AUTO) 4.2 10^3/uL (1.5-6.6); NEUTROPHILS % (AUTO) 52.8 %; PLT - PLATELET COUNT 350 10^3/uL (130-450); RED BLOOD COUNT 4.37 10^6/uL (4.20-5.40); RED CELL DISTRIBUTION WIDTH 12.8 % (12.0-15.0); WHITE BLOOD COUNT 7.9 x10^3/uL (4.8-10.8)
[2022-02-08 17:11] LABS: ALBUMIN 4.2 g/dL (3.2-5.5); ALBUMIN/GLOBULIN RATIO 1.2 (1.0-2.2); BILIRUBIN,TOTAL 0.6 mg/dL (0.2-1.0); CALCIUM 8.9 mg/dL (8.5-10.3); CREATININE 0.6 mg/dL (0.4-1.0); POTASSIUM 3.4 mmol/L (3.5-5.0); TOTAL PROTEIN 7.8 g/dL (6.7-8.2)
[2022-02-08 17:42] LABS: BILIRUBIN,URINE NEGATIVE (NEGATIVE); GLUCOSE, URINE (UA) NEGATIVE (NEGATIVE); KETONES,URINE (UA) NEGATIVE (NEGATIVE); LEUKOCYTE ESTERASE, URINE MODERATE (NEGATIVE); NITRITE,URINE NEGATIVE (NEGATIVE); OCCULT BLOOD,URINE SMALL (NEGATIVE); PROTEIN,URINE NEGATIVE (NEGATIVE); UROBILINOGEN,URINE 0.2 (NORMAL) E.U./dL (NORMAL)
[2022-02-08 17:43] LABS: THYROID STIMULATING HORMONE 4.78 uIU/mL (0.34-5.60)
[2022-02-08 17:46] LABS: CLARITY,URINE HAZY (CLEAR); HCG UR QUAL NEGATIVE
[2022-02-08 17:49] LABS: PROLACTIN 26.06 ng/mL
[2022-02-08 17:54] LABS: BACTERIA,URINE Few /HPF (None Seen); SQUAMOUS EPITHELIAL CELL,UR MOD Squamous (<= Few)
[2022-02-08 18:12] LABS: FOLLICLE STIMULATING HORMONE 4.31 mIU/mL
--- NOTE | 2022-02-08 19:06 | Ultrasound Report ---
PROCEDURE: Pelvic w/Transvag+Doppler Comp INDICATIONS: ITS.REASON: amennorhea TECHNIQUE: Real-time scanning was performed of the pelvic organs, with image documentation. Additional endovagi nal scanning was necessary due to incomplete visualization of the adnexal and endometrial structures by transabdominal scanning. Doppler interrogation was performed of the ovaries bilaterally. COMPARISON: None. FINDINGS: No pathologic free abdominal or pelvic fluid. Uterus: Uterus is normal in size at 8.2 x 4.6 x 6.9 cm. The endometrium measures 16 mm in combined thickness. Ovaries: Right ovary measures 4.4 x 2.2 x 3.4 cm, volume 17.3 cc. Left ovary measures 3.7 x 2.4 x 3. 0 cm, 13.7 cc. There is a focus of decreased echogenicity within the right ovary measuring 1.9 x 1.8 x 2.1 cm. Normal appearing arterial and venous waveforms are confirmed to each ovary.] IMPRESSION: No visualized torsion. Right ovarian cyst suspected to be hemorrhagic. Reviewed by: Mae Maddox MD on 02/08/2022 7:05 PM PDT Approved by: Mae Maddox MD on 02/08/2022 7:05 PM PDT Station ID: [id number]
== END 2022-02-08 19:20 | disposition home or self-care (01) ==
LOC: ED 16:23
DX: N91.2 Amenorrhea, unspecified (principal)
CPT/HCPCS: 36415; 80053; 81001; 81003; 81025; 82670; 83001; 84146; 84402; 84403; 84443; 85025; 87086; 93975; 99283; 99284

== ENCOUNTER 2022-04-17 12:25 | Outpatient (CLI) | payer OTHER ==
--- NOTE | 2022-04-17 15:58 | MRI Report ---
PROCEDURE: WRIST WO - RT INDICATIONS: SPRIAN OF RIGHT WRIST TECHNIQUE: Noncontrast coronal proton density fast spin echo and T2 fast spin echo with fat saturation; coronal 3-D gradient echo, axial T1 spin echo and T2 fast spin echo with fat saturation, sagittal T1 spin ech o through the wrist. COMPARISON: Right wrist radiograph dated 10/02/2021. FINDINGS: Image quality: Excellent. Bones and cartilage: The carpal bones are normally aligned. No bone marrow contusions or fractures. No evidence for avascular necrosis. Overlying cartilage surfaces appear normal. Carpal ligaments: The scapholunate and lunotriquetral ligaments appear intact. In the absence of in tra-articular contrast, the extrinsic carpal ligaments are not well identified. On sagittal images, the pisohamate ligament appears intact. Triangular fibrocartilage complex: There is signal abnormality and contour irregularity involving med ial periphery of regular fibrocartilage near its ulnar insertion concerning for focal TFCC tear in th is area. The adjacent meniscal homolog appears normal in the absence of intra-articular contrast. Th e extensor carpi ulnaris tendon is mildly thickened with intrasubstance T2 hyperintense signal at the level of ulnar styloid. Tendons and soft tissues: The carpal tunnel structures appear normal, including the median nerve. T he ulnar nerve appears normal within Guyon's canal. All six extensor tendon compartments demonstrate normal morphology, without pathologic tendon sheath fluid. There is suggestion of a tiny 3 mm gangli on cyst adjacent to ulnar periphery of triangular fibrocartilage. IMPRESSION: 1. No marrow edema. No fracture or dislocation. 2. Intrinsic and extrinsic wrist ligaments are intact. 3. Finding is concerning for focal TFCC tear near its ulnar insertion with adjacent 3 mm ganglion cys t. 4. Low-grade tendinosis involving extensor carpi ulnaris tendon at the level of ulnar styloid. Rest o f the wrist tendons are intact. Reviewed by: Eldon Ramirez MD on 04/17/2022 3:56 PM PST Approved by: Eldon Ramirez MD on 04/17/2022 3:56 PM PST Station ID: [id number]
== END 2022-04-17 12:26 | disposition home or self-care (01) ==
LOC: DI 12:25
PROVIDERS: ATTEND Physician Assistant Surgical
DX: S63.591A Other specified sprain of right wrist, initial encounter (principal)

== ENCOUNTER 2022-06-22 19:22 | Emergency (ER) | payer OTHER ==
[2022-06-22 20:03] LABS: BASOPHILS % (AUTO) 0.5 %; EOSINOPHILS # (AUTO) 0.2 10^3/uL (0.0-0.7); EOSINOPHILS % (AUTO) 2.6 %; HCT - HEMATOCRIT 39.7 % (37.0-47.0); LYMPHOCYTES # (AUTO) 2.2 10^3/uL (1.5-3.5); LYMPHOCYTES % (AUTO) 26.7 %; MEAN CORPUSCULAR HEMOGLOBIN 28.8 pg (27.0-31.0); MEAN CORPUSCULAR HGB CONC 32.7 g/dL (32.0-36.0); MEAN PLATELET VOLUME 8.9 fL (7.9-10.8); MONOCYTES # (AUTO) 0.6 10^3/uL (0.0-1.0); MONOCYTES % (AUTO) 7.4 %; NEUTROPHILS # (AUTO) 5.1 10^3/uL (1.5-6.6); NEUTROPHILS % (AUTO) 62.2 %; PLT - PLATELET COUNT 328 10^3/uL (130-450); RED BLOOD COUNT 4.51 10^6/uL (4.20-5.40); RED CELL DISTRIBUTION WIDTH 12.7 % (12.0-15.0); WHITE BLOOD COUNT 8.1 x10^3/uL (4.8-10.8)
[2022-06-22 20:13] LABS: ALBUMIN 4.5 g/dL (3.2-5.5); ALBUMIN/GLOBULIN RATIO 1.2 (1.0-2.2); BILIRUBIN,TOTAL 0.8 mg/dL (0.2-1.0); CALCIUM 9.4 mg/dL (8.5-10.3); CREATININE 0.5 mg/dL (0.4-1.0); POTASSIUM 3.7 mmol/L (3.5-5.0); TOTAL PROTEIN 8.3 g/dL (6.7-8.2)
[2022-06-22 21:04] LABS: BILIRUBIN,URINE NEGATIVE (NEGATIVE); GLUCOSE, URINE (UA) NEGATIVE (NEGATIVE); KETONES,URINE (UA) NEGATIVE (NEGATIVE); LEUKOCYTE ESTERASE, URINE TRACE (NEGATIVE); NITRITE,URINE NEGATIVE (NEGATIVE); OCCULT BLOOD,URINE MODERATE (NEGATIVE); PROTEIN,URINE NEGATIVE (NEGATIVE); UROBILINOGEN,URINE 0.2 (NORMAL) E.U./dL (NORMAL)
[2022-06-22 21:05] LABS: CLARITY,URINE CLEAR (CLEAR)
[2022-06-22] MEDS ORDERED: KETOROLAC 30 MG/ML VIAL IM STA (21:13)
[2022-06-22 21:14] LABS: BACTERIA,URINE Few /HPF (None Seen); RBC,URINE 0-5 /HPF (0-5); SQUAMOUS EPITHELIAL CELL,UR MOD Squamous (<= Few)
[2022-06-22 21:33] LABS: HCG UR QUAL NEGATIVE
--- NOTE | 2022-06-22 23:01 | ED Physician Documentation ---
History of Present Illness - Stated complaint Stated Complaint: ABD PX - Chief complaint Chief Complaint: Abd Pain - History obtained from History obtained from: Patient - Additonal information Additional information: 26-year-old woman with history of irregular menses presents with lower mid abdominal pain for the past several days gradual onset, constant, aching. Patient had normal bowel movement today. Endorses dysuria. Patient states she is late for her menses. Unsure of LMP. Review of Systems Constitutional: denies: Fever GI: reports: Abdominal Pain. denies: Nausea, Vomiting, Constipation, Diarrhea : reports: Dysuria. denies: Frequency PD PAST MEDICAL HISTORY - Past Medical History Respiratory: Asthma Musculoskeletal: Scoliosis - Past Surgical History Past Surgical History: Yes Ortho: Spine surgery - Present Medications Home Medications: Ambulatory Orders Medication Instructions Recorded Confirmed Cefpodoxime Proxetil [Vantin] 200 mg PO Q12H #28 tablet 06/22/22 - Allergies Allergies/Adverse Reactions: Allergies Allergy/AdvReac Type Severity Reaction Status Date / Time No Known Drug Allergies Allergy Verified 06/22/22 19:32 - Social History Does the pt smoke?: No Smoking Status: Never smoker Does the pt drink ETOH?: No Does the pt have substance abuse?: No - Immunizations Immunizations are current?: No - POLST Patient has POLST: No PD ED PE NORMAL - Vitals Vital signs reviewed: Yes - General General: Alert and oriented X 3, No acute distress, Well developed/nourished - HEENT HEENT: Atraumatic, PERRL - Abdomen Abdomen: Non tender, Non distended, Other (Suprapubic discomfort to palpation) - Back Back: Other (Bilateral CVA discomfort to palpation) Results - Vitals Vitals: Vital Signs - 24 hr 06/22/22 19:32 Temperature 37.2 C Heart Rate 80 Respiratory 16 Rate Blood Pressure 108/62 O2 Saturation 100 Oxygen O2 Source Room air - Labs Labs: Laboratory Tests 06/22/22 06/22/22 06/22/22 19:54 19:54 20:45 WBC 8.1 RBC 4.51 Hgb 13.0 Hct 39.7 MCV 88.0 MCH 28.8 MCHC 32.7 RDW 12.7 Plt Count 328 MPV 8.9 Neut # (Auto) 5.1 Lymph # (Auto) 2.2 [place] # (Auto) 0.6 Eos # (Auto) 0.2 Baso # (Auto) 0.0 Absolute Nucleated RBC 0.00 Nucleated RBC % 0.0 Sodium 135 Potassium 3.7 Chloride 103 Carbon Dioxide 20 L Anion Gap 12.0 BUN 16 Creatinine 0.5 Estimated GFR (MDRD) 148 Glucose 94 Calcium 9.4 Total Bilirubin 0.8 AST 18 ALT 16 Alkaline Phosphatase 47 Total Protein 8.3 H Albumin 4.5 Globulin 3.8 Albumin/Globulin Ratio 1.2 Lipase 42 Urine Color YELLOW Urine Clarity CLEAR Urine pH 7.0 Ur Specific [place] 1.020 Urine Protein NEGATIVE Urine Glucose (UA) NEGATIVE Urine Ketones NEGATIVE Urine Occult Blood MODERATE H Urine Nitrite NEGATIVE Urine Bilirubin NEGATIVE Urine Urobilinogen 0.2 (NORMAL) Ur Leukocyte Esterase TRACE H Urine RBC 0-5 Urine WBC 4-5 Ur Squamous Epith Cells MOD Squamous H Urine Bacteria Few Ur Microscopic Review INDICATED Urine Culture Comments NOT INDICATED Urine HCG, Qual 06/22/22 20:45 WBC RBC Hgb Hct MCV MCH MCHC RDW Plt Count MPV Neut # (Auto) Lymph # (Auto) [place] # (Auto) Eos # (Auto) Baso # (Auto) Absolute Nucleated RBC Nucleated RBC % Sodium Potassium Chloride Carbon Dioxide Anion Gap BUN Creatinine Estimated GFR (MDRD) Glucose Calcium Total Bilirubin AST ALT Alkaline Phosphatase Total Protein Albumin Globulin Albumin/Globulin Ratio Lipase Urine Color Urine Clarity Urine pH Ur Specific [place] Urine Protein Urine Glucose (UA) Urine Ketones Urine Occult Blood Urine Nitrite Urine Bilirubin Urine Urobilinogen Ur Leukocyte Esterase Urine RBC Urine WBC Ur Squamous Epith Cells Urine Bacteria Ur Microscopic Review Urine Culture Comments Urine HCG, Qual NEGATIVE PD Medical Decision Making - ED course ED course: 26-year-old woman presents with suprapubic and bilateral lower quadrant abdominal pain radiating to the back for the past several days with associated dysuria. She is well-appearing in NAD with benign abdominal exam. CBC and abdominal panel ordered as well as urine hcg and u/a. Unremarkable with exception of uti. given she has CVA discomfort on exam we will treat as possible pyelo. antibiotics sent to pharmacy. plan to f/u with pcp. return precautions given. Departure - Departure Disposition: 01 Home, Self Care Clinical Impression: UTI (urinary tract infection) Condition: Stable Instructions: ED UTI Cystitis Female Prescriptions: Cefpodoxime Proxetil [Vantin] 200 mg PO Q12H #28 tablet Comments: You are seen in the emergency department for urinary tract infection. Please follow-up with your primary care provider. Return to the emergency department for new or worsening symptoms or other concerns. Antibiotic prescription sent electronically to [facility] in [place].Take ibuprofen 600 mg as needed [id number] for pain.
[2022-06-22 23:19] VITALS: BP 108/74
== END 2022-06-22 23:19 | disposition home or self-care (01) ==
LOC: ED 19:22
DX: N39.0 Urinary tract infection, site not specified (principal)
CPT/HCPCS: 36415; 80053; 81001; 81003; 81025; 83690; 85025; 87086; 96372; 99283; 99284

== ENCOUNTER 2022-07-09 08:00 | Outpatient (CLI) | payer OTHER | END 2022-07-09 23:59 | disposition home or self-care (01) | LOC: LAB.N 08:00 | PROVIDERS: ATTEND Registered Nurse | DX: R30.0 Dysuria (principal) | CPT/HCPCS: 87086 ==

== ENCOUNTER 2022-07-14 14:58 | Emergency (ER) | payer OTHER ==
[2022-07-14 15:22] LABS: BILIRUBIN,URINE NEGATIVE (NEGATIVE); GLUCOSE, URINE (UA) NEGATIVE (NEGATIVE); KETONES,URINE (UA) NEGATIVE (NEGATIVE); LEUKOCYTE ESTERASE, URINE SMALL (NEGATIVE); NITRITE,URINE NEGATIVE (NEGATIVE); OCCULT BLOOD,URINE MODERATE (NEGATIVE); PROTEIN,URINE NEGATIVE (NEGATIVE); UROBILINOGEN,URINE 0.2 (NORMAL) E.U./dL (NORMAL)
[2022-07-14 15:32] LABS: CLARITY,URINE CLEAR (CLEAR); HCG UR QUAL NEGATIVE
[2022-07-14 15:33] LABS: BACTERIA,URINE Rare /HPF (None Seen); RBC,URINE 0-5 /HPF (0-5); SQUAMOUS EPITHELIAL CELL,UR RARE Squamous (<= Few)
--- NOTE | 2022-07-14 17:26 | ED Physician Documentation ---
History of Present Illness - Stated complaint Stated Complaint: LOWER BACK PX - Chief complaint Chief Complaint: Abd Pain - Additonal information Additional information: 26-year-old female presents to the emergency department for evaluation of lower abdominal pain with radiation to the back. Reports symptoms began about 2 weeks ago. They were accompanied by dysuria, urgency and frequency. Patient never had fevers or vomiting. She did go to a local provider on the of this month and was started on a short course of antibiotics but when the culture was subsequently negative she was told to stop taking them. She was unsure what the antibiotic was. Despite this she continues to have urgency and frequency as well as persistence of low back pain with radiation to the flank. She is concerned that she could have a urinary tract infection or a kidney stone. Denies any pertinent past medical history or medications. No pertinent past surgical history. Review of Systems Constitutional: denies: Fever Throat: reports: Reviewed and negative Cardiac: reports: Reviewed and negative Respiratory: reports: Reviewed and negative GI: reports: Abdominal Pain : reports: Dysuria, Frequency Skin: reports: Reviewed and negative Musculoskeletal: reports: Reviewed and negative PD PAST MEDICAL HISTORY - Past Medical History Respiratory: Asthma Musculoskeletal: Scoliosis - Past Surgical History Past Surgical History: Yes Ortho: Spine surgery - Present Medications Home Medications: Ambulatory Orders Medication Instructions Recorded Confirmed Cefpodoxime Proxetil [Vantin] 200 mg PO Q12H #28 tablet 06/22/22 Cefpodoxime Proxetil [Vantin] 100 mg PO Q12H #14 tablet 07/14/22 - Allergies Allergies/Adverse Reactions: Allergies Allergy/AdvReac Type Severity Reaction Status Date / Time No Known Drug Allergies Allergy Verified 07/14/22 15:05 - Social History Does the pt smoke?: No Smoking Status: Never smoker Does the pt drink ETOH?: No Does the pt have substance abuse?: No - Immunizations Immunizations are current?: No - POLST Patient has POLST: No PD ED PE NORMAL - General General: Alert and oriented X 3, No acute distress, Well developed/nourished - HEENT HEENT: Atraumatic, Moist mucous membranes - Neck Neck: Supple, no meningeal sign, No adenopathy - Cardiac Cardiac: RRR, No murmur - Respiratory Respiratory: No respiratory distress - Abdomen Abdomen: Normal bowel sounds, Soft, Non tender (Mild tenderness elicited with palpation of the lower abdomen without guarding or rebound. No flank or true CVA tenderness elicited.) - Back Back: No CVA TTP, No spinal TTP - Derm Derm: Normal color, Warm and dry - Extremities Extremities: No deformity - Neuro Eye Opening: Spontaneous Motor: Obeys Commands Verbal: Oriented GCS Score: 15 Results - Vitals Vitals: Vital Signs - 24 hr 07/14/22 07/14/22 07/14/22 15:05 16:47 18:00 Temperature 36.5 C Heart Rate 69 67 64 Respiratory 16 16 16 Rate Blood Pressure 139/74 H 136/74 H 108/63 O2 Saturation 100 100 100 Oxygen O2 Source Room air - Labs Labs: Laboratory Tests 07/14/22 07/14/22 07/14/22 15:10 17:28 17:28 WBC 6.1 RBC 4.37 Hgb 12.6 Hct 39.9 MCV 91.3 MCH 28.8 MCHC 31.6 L RDW 13.0 Plt Count 303 MPV 9.0 Neut # (Auto) 3.1 Lymph # (Auto) 2.1 [place] # (Auto) 0.6 Eos # (Auto) 0.2 Baso # (Auto) 0.1 Absolute Nucleated RBC 0.00 Nucleated RBC % 0.0 Sodium 138 Potassium 4.0 Chloride 106 Carbon Dioxide 26 Anion Gap 6.0 BUN 14 Creatinine 0.4 Estimated GFR (MDRD) 191 Glucose 80 Calcium 9.2 Total Bilirubin 0.5 AST 20 ALT 18 Alkaline Phosphatase 51 Total Protein 7.9 Albumin 4.3 Globulin 3.6 Albumin/Globulin Ratio 1.2 Lipase 52 H Urine Color YELLOW Urine Clarity CLEAR Urine pH 6.0 Ur Specific [place] 1.015 Urine Protein NEGATIVE Urine Glucose (UA) NEGATIVE Urine Ketones NEGATIVE Urine Occult Blood MODERATE H Urine Nitrite NEGATIVE Urine Bilirubin NEGATIVE Urine Urobilinogen 0.2 (NORMAL) Ur Leukocyte Esterase SMALL H Urine RBC 0-5 Urine WBC 4-5 Ur Squamous Epith Cells RARE Squamous Urine Bacteria Rare Ur Microscopic Review INDICATED Urine Culture Comments INDICATED Urine HCG, Qual NEGATIVE - Rads (name of study) CT abd w Relevant Findings:: Final report received (No acute findings of the abdomen or pelvis to explain patient's symptoms.) PD Medical Decision Making - ED course Complexity details: reviewed results, re-evaluated patient, considered differential, d/w patient ED course: 26-year-old female presents to the emergency department for evaluation of lower abdominal pain with radiation to the back. This began about 2 weeks ago and had associated dysuria urgency frequency as well as hematuria. She went to local clinic last week and was thought to have a urinary tract infection but subsequent culture was negative. She took only 1 day of antibiotics. Despite this she continues to have persistent urinary symptoms and was concerned she could have a urinary tract infection or kidney stones given the hematuria. On exam today she did have some generalized abdominal tenderness without guarding or rebound but was most predominant in the lower abdomen. CBC and electrolytes as interpreted by myself are essentially unremarkable. Her urinalysis has a culture pending but there was blood, Bacteria but no nitrates. A CT of the abdomen was performed without findings to suggest acute appendicitis, renal colic, ureteral colic, bladder inflammation or bowel obstruction. However given the predominance of dysuria urgency and frequency as well as a urinalysis suggesting early or mild infection I think would be prudent to start her on a course of antibiotics and have her follow closely with PCP. We discussed that if the symptoms or not improving she should return to the ER. Departure - Departure Disposition: 01 Home, Self Care Clinical Impression: Dysuria Condition: Stable Record reviewed to determine appropriate education?: Yes Prescriptions: Cefpodoxime Proxetil [Vantin] 100 mg PO Q12H #14 tablet Comments: You came to the emergency department today because for several weeks you have been having pain when you urinate, urinary urgency and frequency. You have also been having pain in your lower abdomen that radiates to your back. Today in the emergency department your CBC and electrolytes were essentially normal. Your urine suggest very mild or early infection but its not certain. A culture is pending. We did do a CT of your abdomen that did not show any findings to suggest kidney stones, ureter stones, appendicitis or other worrisome abdominal or pelvic problems. I would like you to fill the prescription for the cefpodoxime and take twice daily for the next week. It is very important that you follow closely with your primary care doctor. If your urine culture does not grow any bacteria your primary doctor may need to make referrals or evaluation for other causes of urinary symptoms such as interstitial cystitis. Return to the ER if you develop any sudden severe abdominal pain, have fevers or uncontrolled vomiting.
[2022-07-14] MEDS ORDERED: iohexoL-300 100 ML VIAL ONE (17:29)
[2022-07-14 17:33] LABS: BASOPHILS # (AUTO) 0.1 10^3/uL (0.0-0.1); BASOPHILS % (AUTO) 0.8 %; EOSINOPHILS # (AUTO) 0.2 10^3/uL (0.0-0.7); EOSINOPHILS % (AUTO) 3.8 %; HCT - HEMATOCRIT 39.9 % (37.0-47.0); HGB - HEMOGLOBIN 12.6 g/dL (12.0-16.0); LYMPHOCYTES # (AUTO) 2.1 10^3/uL (1.5-3.5); MEAN CORPUSCULAR HEMOGLOBIN 28.8 pg (27.0-31.0); MEAN CORPUSCULAR HGB CONC 31.6 g/dL (32.0-36.0); MEAN CORPUSCULAR VOLUME 91.3 fL (81.0-99.0); MONOCYTES # (AUTO) 0.6 10^3/uL (0.0-1.0); MONOCYTES % (AUTO) 9.5 %; NEUTROPHILS # (AUTO) 3.1 10^3/uL (1.5-6.6); NEUTROPHILS % (AUTO) 50.6 %; PLT - PLATELET COUNT 303 10^3/uL (130-450); RED BLOOD COUNT 4.37 10^6/uL (4.20-5.40); WHITE BLOOD COUNT 6.1 x10^3/uL (4.8-10.8)
[2022-07-14 17:46] LABS: ALBUMIN 4.3 g/dL (3.2-5.5); ALBUMIN/GLOBULIN RATIO 1.2 (1.0-2.2); BILIRUBIN,TOTAL 0.5 mg/dL (0.2-1.0); CALCIUM 9.2 mg/dL (8.5-10.3); CREATININE 0.4 mg/dL (0.4-1.0); TOTAL PROTEIN 7.9 g/dL (6.7-8.2)
[2022-07-14] MEDS ORDERED: iohexoL-300 100 ML VIAL IVP ONE (18:09)
--- NOTE | 2022-07-14 18:23 | CT Report ---
PROCEDURE: ABDOMEN/PELVIS W INDICATIONS: dysuria, lower pelvic and lbp CONTRAST: 100ml omni 300 TECHNIQUE: After the administration of IV contrast, 5 mm thick sections acquired from the diaphragms to the symp hysis. 5 mm thick coronal and sagittal reformats were acquired. For radiation dose reduction, the f ollowing was used: automated exposure control, adjustment of mA and/or kV according to patient size. COMPARISON: None. FINDINGS: Image quality: Excellent. ABDOMEN: Lung bases: Lung bases are clear. Heart size is normal. Solid organs: Liver and spleen are normal in size and enhancement. Gallbladder is unremarkable. Bi liary system is non dilated. Pancreas enhances normally. No adrenal nodules. Kidneys demonstrate n ormal size and enhancement, without hydronephrosis. Peritoneum and bowel: Bowel loops demonstrate normal wall thickness and caliber. No free fluid or a ir. Normal appendix. Nodes and vessels: No retroperitoneal or mesenteric adenopathy by size criteria. Aorta and inferior vena cava are normal in size. Miscellaneous: No ventral hernias. PELVIS: Genitourinary: Bladder wall thickness is normal. Miscellaneous: No inguinal hernias or adenopathy. Bones: Scoliosis of the thoracolumbar spine with posterior fixation partially visualized extending d own to L3. No suspicious bony lesions. No vertebral body compression fractures. IMPRESSION: No acute findings of the abdomen or pelvis to explain patient's symptoms. Reviewed by: Matthew Esteban MD on 07/14/2022 5:22 PM [place] Approved by: Matthew Esteban MD on 07/14/2022 5:22 PM [place] Station ID: [id number]
[2022-07-14 18:50] VITALS: BP 119/68
== END 2022-07-14 18:50 | disposition home or self-care (01) ==
LOC: ED 14:58
DX: R30.0 Dysuria (principal)
CPT/HCPCS: 36415; 74177; 80053; 81001; 81025; 83690; 85025; 87086; 99284; Q9967; 81003

== ENCOUNTER 2022-07-28 08:00 | Outpatient (CLI) | payer OTHER | END 2022-07-28 23:59 | disposition home or self-care (01) | LOC: LAB 08:00 | PROVIDERS: ATTEND Emergency Medicine | DX: R10.9 Unspecified abdominal pain (principal); R30.0 Dysuria; N39.0 Urinary tract infection, site not specified | CPT/HCPCS: 87493 ==

== ENCOUNTER 2022-07-28 12:00 | Emergency (ER) | payer OTHER ==
[2022-07-28 12:29] VITALS: BP 123/72
[2022-07-28] MEDS ORDERED: SODIUM CHLORIDE 0.9% 1,000 ML IV STA (12:32)
--- NOTE | 2022-07-28 12:33 | ED Physician Documentation ---
PD HPI ABD PAIN - Stated complaint Stated Complaint: DIARRHEA,ABD PX - Chief complaint Chief Complaint: Abd Pain - Additional information Additional information: 27-year-old female Presents with bilateral lower abdominal pain intermittently over the last several days. Pain is worse when she is trying to have a bowel movement, after the bowel movement she gets severe sharp pains in the lower abdomen. Bowel movements are soft, not quite liquidy but not solid. She denies any constipation. She has not had any nausea Or vomiting. She Has been treated recently with antibiotics, initially with a oral cephalosporin and then changed to Bactrim however it sounds as though she was called and told to stop the Bactrim after starting it. She has been seen several times in the past for dysuria though her urine cultures have always been negative. She is following with urology for her urinary symptoms. No recent international travel, no unusual foods or atypical water intake. No one else at home has been sick. She has not had a fever or chills. Denies any concern for STI, denies any vaginal discharge or vaginal pain. Review of Systems Constitutional: reports: Reviewed and negative Eyes: reports: Reviewed and negative Ears: reports: Reviewed and negative Nose: reports: Reviewed and negative Throat: reports: Reviewed and negative Cardiac: reports: Reviewed and negative Respiratory: reports: Reviewed and negative GI: reports: Abdominal Pain, Diarrhea. denies: Abdominal Swelling, Nausea, Vomiting, Constipation, Hematemesis, Bloody / black stool : reports: Reviewed and negative Skin: reports: Reviewed and negative Musculoskeletal: reports: Reviewed and negative Neurologic: reports: Reviewed and negative Psychiatric: reports: Reviewed and negative PD PAST MEDICAL HISTORY - Past Medical History Past Medical History: Yes Respiratory: Asthma Musculoskeletal: Scoliosis - Past Surgical History Past Surgical History: Yes Ortho: Spine surgery - Present Medications Home Medications: Ambulatory Orders Medication Instructions Recorded Confirmed Cefpodoxime Proxetil [Vantin] 200 mg PO Q12H #28 tablet 06/22/22 Cefpodoxime Proxetil [Vantin] 100 mg PO Q12H #14 tablet 07/14/22 - Allergies Allergies/Adverse Reactions: Allergies Allergy/AdvReac Type Severity Reaction Status Date / Time No Known Drug Allergies Allergy Verified 07/28/22 12:29 - Social History Does the pt smoke?: No Smoking Status: Never smoker Does the pt drink ETOH?: No Does the pt have substance abuse?: No - Immunizations Immunizations are current?: No - POLST Patient has POLST: No PD ED PE NORMAL - Vitals Vital signs reviewed: Yes - General General: Alert and oriented X 3, No acute distress, Well developed/nourished - HEENT HEENT: Atraumatic, Pharynx benign - Respiratory Respiratory: No respiratory distress, Clear bilaterally - Abdomen Abdomen: Normal bowel sounds, Soft, Non distended, Other (Mild bilateral lower abdominal pain, no guarding no rigidity) - Female Female : Deferred - Back Back: No CVA TTP, No spinal TTP - Derm Derm: Normal color, Warm and dry, No rash - Neuro Neuro: Alert and oriented X 3 Eye Opening: Spontaneous Motor: Obeys Commands Verbal: Oriented GCS Score: 15 Results - Vitals Vitals: Vital Signs - 24 hr 07/28/22 12:23 Temperature 37.6 C Heart Rate 83 Respiratory 16 Rate Blood Pressure 123/72 O2 Saturation 98 Oxygen O2 Source Room air - Labs Labs: Laboratory Tests 07/28/22 07/28/22 07/28/22 13:00 13:00 13:51 WBC 9.0 RBC 4.47 Hgb 13.2 Hct 40.6 MCV 90.8 MCH 29.5 MCHC 32.5 RDW 12.7 Plt Count 348 MPV 8.3 Neut # (Auto) 6.8 H Lymph # (Auto) 1.2 L [place] # (Auto) 0.7 Eos # (Auto) 0.2 Baso # (Auto) 0.1 Absolute Nucleated RBC 0.00 Nucleated RBC % 0.0 Sodium 137 Potassium 3.7 Chloride 106 Carbon Dioxide 25 Anion Gap 6.0 BUN 7 Creatinine 0.5 Estimated GFR (MDRD) 147 Glucose 92 Calcium 8.8 Total Bilirubin 0.5 AST 17 ALT 25 Alkaline Phosphatase 121 Total Protein 7.8 Albumin 3.9 Globulin 3.9 Albumin/Globulin Ratio 1.0 Lipase 31 Urine Color YELLOW Urine Clarity CLEAR Urine pH 7.0 Ur Specific [place] <=1.005 Urine Protein NEGATIVE Urine Glucose (UA) NEGATIVE Urine Ketones NEGATIVE Urine Occult Blood SMALL H Urine Nitrite NEGATIVE Urine Bilirubin NEGATIVE Urine Urobilinogen 0.2 (NORMAL) Ur Leukocyte Esterase NEGATIVE Urine RBC 0-5 Urine WBC 0-3 Ur Squamous Epith Cells FEW Squamous Urine Bacteria Rare Ur Microscopic Review INDICATED Urine Culture Comments NOT INDICATED Urine HCG, Qual NEGATIVE Chlam trachomat DNA PCR N.gonorrhoeae DNA (PCR) T. vaginalis (PCR) 07/28/22 13:51 WBC RBC Hgb Hct MCV MCH MCHC RDW Plt Count MPV Neut # (Auto) Lymph # (Auto) [place] # (Auto) Eos # (Auto) Baso # (Auto) Absolute Nucleated RBC Nucleated RBC % Sodium Potassium Chloride Carbon Dioxide Anion Gap BUN Creatinine Estimated GFR (MDRD) Glucose Calcium Total Bilirubin AST ALT Alkaline Phosphatase Total Protein Albumin Globulin Albumin/Globulin Ratio Lipase Urine Color Urine Clarity Urine pH Ur Specific [place] Urine Protein Urine Glucose (UA) Urine Ketones Urine Occult Blood Urine Nitrite Urine Bilirubin Urine Urobilinogen Ur Leukocyte Esterase Urine RBC Urine WBC Ur Squamous Epith Cells Urine Bacteria Ur Microscopic Review Urine Culture Comments Urine HCG, Qual Chlam trachomat DNA PCR NEGATIVE N.gonorrhoeae DNA (PCR) NEGATIVE T. vaginalis (PCR) NEGATIVE PD Medical Decision Making - ED course Complexity details: reviewed results, re-evaluated patient, considered differential, d/w patient ED course: This is a 27-year-old female who presents with lower abdominal pain. Pain is Worse with bowel movements. She is having soft stools not specifically watery diarrhea but stools are soft, no constipation. She has Been on antibiotics recently therefore C. difficile colitis is a possibility. She was not able to provide a stool sample here however therefore she was sent home with an order and supplies to provide a stool sample if ongoing symptoms and and watery or soft diarrhea. We obtained labs today which are reassuring including CBC with stable H&H and no leukocytosis, and a CMP that is completely normal. Her urinalysis has trace blood but no other signs of infection. Her gonorrhea, chlamydia and trichomoniasis tests are negative as well. I discussed with patient that differentials could include fibroids or ovarian cyst though symptoms are bilateral less likely ovarian cyst and I have low suspicion for ovarian torsion for this reason As well as the intermittent's of her symptoms. I advised her to adhere to a bland and easily digestible diet for the next few days, take ibuprofen and Tylenol as needed for pain and try to obtain the C. difficile sample if possible. If ongoing symptoms, continue follow-up with PCP and urology or return to the ER if worsening or develops fever vomiting or other new concerns. Departure - Departure Disposition: 01 Home, Self Care Clinical Impression: Abdominal pain Qualifiers: Abdominal location: lower abdomen, unspecified Qualified Code(s): R10.30 - Lower abdominal pain, unspecified Condition: Good Instructions: ED Abdominal Pain Female Non-Specific Abdominal Pain Comments: You presented with lower abdominal pain as well as diarrhea. This may be a result of your recent antibiotic use. I would like to get a C. difficile sample and you can submit this to the lab Outpatient. There are no other acute findings on your exam today and no signs of a urinary tract infection. We have collected a gonorrhea and Chlamydia test to evaluate for other possible signs of pelvic pain but at this time the results are pending. We will call you if those results are positive. Please follow-up with your primary doctor for this issue as it appears to be more of a chronic lower abdominal pain than any acute findings as your prior urinalyses have all been negative for infection. Discharge Date/Time: 07/28/22 15:20
[2022-07-28 13:04] LABS: BASOPHILS # (AUTO) 0.1 10^3/uL (0.0-0.1); BASOPHILS % (AUTO) 0.6 %; EOSINOPHILS # (AUTO) 0.2 10^3/uL (0.0-0.7); EOSINOPHILS % (AUTO) 2.7 %; HCT - HEMATOCRIT 40.6 % (37.0-47.0); HGB - HEMOGLOBIN 13.2 g/dL (12.0-16.0); LYMPHOCYTES # (AUTO) 1.2 10^3/uL (1.5-3.5); LYMPHOCYTES % (AUTO) 13.3 %; MEAN CORPUSCULAR HEMOGLOBIN 29.5 pg (27.0-31.0); MEAN CORPUSCULAR HGB CONC 32.5 g/dL (32.0-36.0); MEAN CORPUSCULAR VOLUME 90.8 fL (81.0-99.0); MEAN PLATELET VOLUME 8.3 fL (7.9-10.8); MONOCYTES # (AUTO) 0.7 10^3/uL (0.0-1.0); MONOCYTES % (AUTO) 7.2 %; NEUTROPHILS # (AUTO) 6.8 10^3/uL (1.5-6.6); NEUTROPHILS % (AUTO) 75.5 %; PLT - PLATELET COUNT 348 10^3/uL (130-450); RED BLOOD COUNT 4.47 10^6/uL (4.20-5.40); RED CELL DISTRIBUTION WIDTH 12.7 % (12.0-15.0)
[2022-07-28 13:17] LABS: ALBUMIN 3.9 g/dL (3.2-5.5); BILIRUBIN,TOTAL 0.5 mg/dL (0.2-1.0); CALCIUM 8.8 mg/dL (8.5-10.3); CREATININE 0.5 mg/dL (0.4-1.0); POTASSIUM 3.7 mmol/L (3.5-5.0); TOTAL PROTEIN 7.8 g/dL (6.7-8.2)
[2022-07-28 13:59] LABS: BILIRUBIN,URINE NEGATIVE (NEGATIVE); GLUCOSE, URINE (UA) NEGATIVE (NEGATIVE); KETONES,URINE (UA) NEGATIVE (NEGATIVE); LEUKOCYTE ESTERASE, URINE NEGATIVE (NEGATIVE); NITRITE,URINE NEGATIVE (NEGATIVE); OCCULT BLOOD,URINE SMALL (NEGATIVE); PROTEIN,URINE NEGATIVE (NEGATIVE); UROBILINOGEN,URINE 0.2 (NORMAL) E.U./dL (NORMAL)
[2022-07-28 14:01] LABS: CLARITY,URINE CLEAR (CLEAR); HCG UR QUAL NEGATIVE
[2022-07-28 14:11] LABS: BACTERIA,URINE Rare /HPF (None Seen); RBC,URINE 0-5 /HPF (0-5); SQUAMOUS EPITHELIAL CELL,UR FEW Squamous (<= Few); WBC,URINE 0-3 /HPF (0-5)
[2022-07-28 16:38] LABS: CHLAMYDIA TRACHOMATIS DNA NEGATIVE (NEGATIVE); NEISSERIA GONORRHOEAE DNA NEGATIVE (NEGATIVE); TRICHOMONAS VAGINALIS DNA NEGATIVE (NEGATIVE)
== END 2022-07-28 15:20 | disposition home or self-care (01) ==
LOC: ED 12:00
DX: N39.0 Urinary tract infection, site not specified (principal); R10.30 Lower abdominal pain, unspecified
CPT/HCPCS: 36415; 80053; 81001; 81003; 81025; 83690; 85025; 87086; 87491; 87493; 87591; 87661; 99283; 99284

== ENCOUNTER 2022-09-10 12:55 | Outpatient (CLI) | payer OTHER | END 2022-09-10 23:59 | disposition short-term general hospital (02) | LOC: EMS 12:55 | DX: S79.921A Unspecified injury of right thigh, initial encounter (principal); M79.661 Pain in right lower leg; M54.6 Pain in thoracic spine; M25.511 Pain in right shoulder; V03.10XA Pedestrian on foot injured in collision with car, pick-up truck or van in traffic accident, initial encounter; Y92.413 State road as the place of occurrence of the external cause | CPT/HCPCS: A0425; A0427 ==

== ENCOUNTER 2023-02-03 07:59 | Outpatient (CLI) | payer OTHER ==
--- NOTE | 2023-02-03 13:12 | MRI Report ---
PROCEDURE: KNEE WO - RT INDICATIONS: KNEE PAIN TECHNIQUE: Noncontrast sagittal PD fast spin echo and T2 fast spin echo with fat saturation, sagittal 3-D spoile d GE with fat saturation; coronal T1 spin echo and PD fast spin echo with fat saturation, and axial P D fast spin echo with fat saturation through the knee. COMPARISON: None. FINDINGS: Image quality: Excellent. Anterior cruciate ligament: Intact. Posterior cruciate ligament: Intact. Medial collateral ligament: Intact. Lateral collateral ligament: Intact. Medial meniscus: Intact. Lateral meniscus: Intact. Medial and lateral tendons: The semimembranosus tendon insertions appear intact. Visualized portion s of the pes anserinus tendons appear normal. The popliteus tendon appears intact. Iliotibial band appears normal. Anterior structures: Borderline patella melanie. The patellar tendon and the distal quadriceps tendon [place] pear intact. No patellar subluxation. No femoral trochlear dysplasia or ventral trochlear prominence . Possible small edema at the superolateral aspect of the infrapatellar fat pad. Bones: No acute trabecular bone injury or fracture. Medial femorotibial cartilage: Intact. Lateral femorotibial cartilage: Intact. Patellofemoral cartilage: Intact. Soft tissues: There is a physiologic amount of joint fluid. There is no medial popliteal cyst. The musculature surrounding the knee is normal in bulk. IMPRESSION: 1.No acute trabecular bone injury. Cruciate and collateral ligaments are intact. No meniscal tear or focal cartilage defect is seen. 2.Borderline patella melanie. Subtle edema at superolateral aspect of the infrapatellar fat pad can be s een in the setting of mild lateral femoral condyle-patellar tendon friction syndrome. Reviewed by: Naren Ron MD on 02/03/2023 1:11 PM PDT Approved by: Naren Ron MD on 02/03/2023 1:11 PM PDT Station ID: [id number]
--- NOTE | 2023-02-03 13:20 | MRI Report ---
PROCEDURE: ANKLE WO - RT INDICATIONS: ANKLE PAIN TECHNIQUE: Noncontrast Magnetic Resonance Imaging (MRI) of the ankle/hindfoot was performed utilizing the follow ing sequences: sagittal T1 spin echo, sagittal T2 fast spin echo with fat saturation, axial PD fast s pin echo, axial T2 fast spin echo with fat saturation, coronal T1 spin echo, and coronal T2 fast spin echo with fat saturation. COMPARISON: None. FINDINGS: Image quality: Excellent. Bones and joints: Pes planus alignment is noted. No acute trabecular bone injury or fracture. No hindfoot coalition. Th e ankle mortise is maintained. No osteochondral defect is seen at the talar dome. Degenerative spurr ing at the dorsal aspect of the talonavicular joint. Cystic changes are seen in the calcaneus at the angle of Glissane that may represent degenerative subchondral cystic changes or an intraosseous gangl ion. Medial structures: The deep deltoid ligament fibers are intact. There is medial bowing of the tibiospring ligament and t he superior medial band of the spring ligament and around the talar head. The posterior tibialis, fle xor digitorum longus, and flexor hallucis longus tendons are intact. The posterior tibial neurovascul ar bundle appears normal within the tarsal tunnel, without extrinsic mass effect. Lateral structures: The anterior and posterior distal tibiofibular ligaments are intact. The anterior talofibular ligamen t, posterior talofibular ligament, and calcaneofibular ligament are intact. The peroneus brevis and l ongus tendons are intact. The sinus tarsi demonstrates normal fatty signal. Anterior structures: The tibialis anterior, extensor hallucis longus, and extensor digitorum longus tendons appear intact. Posterior and plantar structures: The Achilles tendon is intact. The proximal plantar fascia is intact. Fatty infiltration of the abduc tor digiti minimi muscle is consistent with chronic denervation changes/Patten neuropathy. IMPRESSION: 1.Pes planus. 2.Medial bowing of the tibiospring ligament and the superior medial band of the spring ligament aroun d the talar head. The posterior tibialis tendon appears to be intact. 3.Mild degenerative spurring at the dorsal aspect of the talonavicular joint. 4.Mild grade 2 fatty infiltration of the abductor digiti minimi muscle is most likely secondary to ch ronic denervation changes/Patten neuropathy. Reviewed by: Naren Ron MD on 02/03/2023 1:19 PM PDT Approved by: Naren Ron MD on 02/03/2023 1:19 PM PDT Station ID: [id number]
== END 2023-02-03 08:00 | disposition home or self-care (01) ==
LOC: DI 07:59
PROVIDERS: ATTEND Nurse Practitioner Family
DX: M19.071 Primary osteoarthritis, right ankle and foot (principal); M21.41 Flat foot [pes planus] (acquired), right foot; M22.8X1 Other disorders of patella, right knee

== ENCOUNTER 2023-08-11 09:30 | Outpatient (CLI) | payer OTHER | END 2023-08-11 09:45 | disposition home or self-care (01) | LOC: LAB.N 09:30 | PROVIDERS: ATTEND Physician Assistant Medical | DX: N39.0 Urinary tract infection, site not specified (principal) | CPT/HCPCS: 87086 ==

== ENCOUNTER 2023-10-07 21:16 | Emergency (ER) | payer OTHER ==
[2023-10-07 21:54] LABS: BASOPHILS % (AUTO) 0.6 %; EOSINOPHILS # (AUTO) 0.3 10^3/uL (0.0-0.7); EOSINOPHILS % (AUTO) 4.7 %; HCT - HEMATOCRIT 42.7 % (37.0-47.0); HGB - HEMOGLOBIN 13.4 g/dL (12.0-16.0); LYMPHOCYTES # (AUTO) 1.9 10^3/uL (1.5-3.5); LYMPHOCYTES % (AUTO) 28.6 %; MEAN CORPUSCULAR HEMOGLOBIN 28.3 pg (27.0-31.0); MEAN CORPUSCULAR HGB CONC 31.4 g/dL (32.0-36.0); MEAN CORPUSCULAR VOLUME 90.3 fL (81.0-99.0); MONOCYTES # (AUTO) 0.6 10^3/uL (0.0-1.0); MONOCYTES % (AUTO) 8.3 %; NEUTROPHILS # (AUTO) 3.8 10^3/uL (1.5-6.6); NEUTROPHILS % (AUTO) 57.2 %; PLT - PLATELET COUNT 297 10^3/uL (130-450); RED BLOOD COUNT 4.73 10^6/uL (4.20-5.40); RED CELL DISTRIBUTION WIDTH 12.8 % (12.0-15.0); WHITE BLOOD COUNT 6.6 x10^3/uL (4.8-10.8)
[2023-10-07 22:07] LABS: CALCIUM 9.3 mg/dL (8.5-10.3); CREATININE 0.7 mg/dL (0.6-1.3); POTASSIUM 3.5 mmol/L (3.5-4.5)
[2023-10-07 23:10] LABS: HCG UR QUAL NEGATIVE
[2023-10-07 23:25] VITALS: BP 118/71; O2SAT 99
--- NOTE | 2023-10-07 23:32 | ED Physician Documentation ---
PD HPI FEMALE - Stated complaint Stated Complaint: - Chief complaint Chief Complaint: General - History obtained from History obtained from: Patient - Additional information Additional information: HPI from patient. Patient c/o vaginal bleeding x 2 days. She says she is not menstruating and bleeding between periods is not typical for her. She describes the blood as dark red with some clots. Denies any pain, denies fever. Denies chances of . Denies lightheadedness, dyspnea. Review of Systems Constitutional: denies: Fever, Chills, Sweats Cardiac: reports: Reviewed and negative Respiratory: reports: Reviewed and negative GI: reports: Reviewed and negative : reports: Vaginal bleeding. denies: Dysuria, Frequency, Now EGA PD PAST MEDICAL HISTORY - Past Medical History Respiratory: Asthma Musculoskeletal: Scoliosis - Past Surgical History Past Surgical History: Yes Ortho: Spine surgery - Present Medications Home Medications: Ambulatory Orders Medication Instructions Recorded Confirmed Cefpodoxime Proxetil [Vantin] 200 mg PO Q12H #28 tablet 06/22/22 Cefpodoxime Proxetil [Vantin] 100 mg PO Q12H #14 tablet 07/14/22 Vancomycin [Vancocin] 125 mg PO QID #40 cap 07/28/22 - Allergies Allergies/Adverse Reactions: Allergies Allergy/AdvReac Type Severity Reaction Status Date / Time No Known Drug Allergies Allergy Verified 10/07/23 21:27 - Social History Does the pt smoke?: No Smoking Status: Never smoker Does the pt drink ETOH?: No Does the pt have substance abuse?: No - Immunizations Immunizations are current?: No - POLST Patient has POLST: No PD ED PE NORMAL - Vitals Vital signs reviewed: Yes - General General: Alert and oriented X 3, No acute distress, Well developed/nourished - Cardiac Cardiac: RRR, No murmur - Respiratory Respiratory: No respiratory distress, Clear bilaterally - Abdomen Abdomen: Normal bowel sounds, Soft, Non tender, Non distended - Derm Derm: Normal color Results - Vitals Vitals: Oxygen O2 Source Room air - Labs Labs: Laboratory Tests 10/07/23 10/07/23 10/07/23 21:51 21:51 22:53 WBC 6.6 RBC 4.73 Hgb 13.4 Hct 42.7 MCV 90.3 MCH 28.3 MCHC 31.4 L RDW 12.8 Plt Count 297 MPV 9.0 Neut # (Auto) 3.8 Lymph # (Auto) 1.9 [place] # (Auto) 0.6 Eos # (Auto) 0.3 Baso # (Auto) 0.0 Absolute Nucleated RBC 0.00 Nucleated RBC % 0.0 Sodium 138 Potassium 3.5 Chloride 106 Carbon Dioxide 26 Anion Gap 6.0 BUN 9 Creatinine 0.7 Estimated GFR (MDRD) 99 Glucose 99 Calcium 9.3 Urine HCG, Qual NEGATIVE PD Medical Decision Making - ED course Complexity details: reviewed results, re-evaluated patient, considered differential, d/w patient ED course: Normal CBC except noncontributory finding of low MCHC (which is not concerning given remainder of CBC is normal). Normal BMP. UHCG negative. She is in NAD and nontender on abdominal exam including palpation of abdomen and anterior pelvis. Further emergent testing is not indicated at this time. 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 Departure - Departure Disposition: 01 Home, Self Care Clinical Impression: Vaginal bleeding Condition: Good Instructions: ED Bleed Irregular Vaginal Follow-Up: Debbi Prince DO [Provider Admit Priv/Credential] - Comments: There were no concerning nor diagnostic findings on tonight's blood tests. Your red blood cell levels were within normal range. Your urine test was negative. The cause of your vaginal bleeding is not apparent at this time. The normal blood tests, lack of fever, and lack of any pain or tenderness all are good signs and argue for continuing your evaluation in the outpatient setting. You should next contact your [facility]IGHW[employer] TRAFFIC CONTROL TECHNICIAN in the morning to arrange for the next available appointment for follow-up/reevaluation. If you do not have an [facility]IGHW[employer] TRAFFIC CONTROL TECHNICIAN, you can contact Dr. Obrien's office using the office information and number provided elsewhere on these discharge sheets. Dr. Obrien is the on-call [facility]HW[facility] TRA[employer]IC CONTROL TECHNICIAN for [facility], but anyone in that office can reevaluate you if can be arranged. Discharge Date/Time: 10/08/23 00:57
== END 2023-10-08 00:57 | disposition home or self-care (01) ==
LOC: ED 21:16
DX: N93.9 Abnormal uterine and vaginal bleeding, unspecified (principal)
CPT/HCPCS: 36415; 80048; 81025; 85025; 99283

== ENCOUNTER 2024-01-11 19:41 | Outpatient (CLI) | payer OTHER | END 2024-01-11 23:59 | disposition EMS.NT | LOC: EMS 19:41 | DX: Z03.89 Encounter for observation for other suspected diseases and conditions ruled out (principal); Y04.8XXA Assault by other bodily force, initial encounter ==